=== PATIENT | female | born 1950 | race Caucasian/White ===

== ENCOUNTER 2025-06-23 08:26 | Outpatient (AMB) | payer MEDICARE, SELFPAY ==
--- NOTE | 2025-06-23 08:09 | A.OFFVIS_ITS ---
Intake Vital Signs 06/23/25 08:43 Height 5 ft 5.5 in Weight 135 lb 4 oz BMI 22.2 BP 120/62 Blood Pressure Location Lt brachial Position Sitting Respiration 16 Pulse 78 Pulse Source Pulse Oximeter Temp 97.7 F Temp Source Oral Pulse Oximetry (%) 96 Oxygen Delivery Method Room Air Intake Visit Reasons: medicare wellness visit Instructional Resource Teacher Required: No Accompanied by: Self / Same As Patient Allergies No Known Allergies Allergy (Verified 06/23/25 08:44) Medication List - Last Reconciled 06/23/25 by Tana East MD alendronate 70 mg PO QWEEK amlodipine 5 mg PO DAILY multivitamin with folic acid 400 mcg (Daily-Vcitor Manuel (with folic acid)) 1 tab PO DAILY neomycin-polymyxin B-dexameth 3.5 mg/g-10,000 unit/g-0.1 % 1 appl ophthalmic (eye) TID pravastatin 20 mg PO DAILY sulfasalazine PO HPI HPI Comments History of Present Illness Details The patient is a 75-year-old female presenting for a Medicare wellness visit Health Risk Assessment completed and reviewed. No cognitive deficits noted, no opioid use. Emotional distress: Emotional distress due to the recent deaths and family discord. Limited contact with grandchildren since 2015. Fracture of the right foot: Metatarsal fracture in February. Pain and instability. Using a brace. Completed two PT sessions. Pending orthopedic appt with [facility] Anxiety: Significant anxiety, insomnia from thoughts, weight loss, sporadic palpitations. Hypertension: On amlodipine for control; effective. Subclinical hypothyroidism- due for repeat labs MGUS-due for follow up with hematology at [facility] Hyperlipidemia- on statin. Osteoporosis: Uses alendronate. Rheumatoid Arthritis: Manages with sulfasalazine. Sees credit reference clerk Weight loss: 15-20 lb loss over one year; anxiety-ass ociated. Detachment from family: Limited interaction with family, particularly grandchildren. Care Team Dr. Rodriguez -rheumatology [facility]opedics [facility] Breast and Wellness Social History: - Limited family contact, especially wit h grandchildren since 2015 - Responsible for managing 's med ical care - Experienced financial strain due to me dical issues - Weight loss due to anxiety Review of Systems - Constitutional: Reports weight loss, d enies fever - Respiratory: Denies shortness of breat h - Cardiovascular: Reports palpitations l inked to anxiety - Gastrointestinal: Denies nausea or abd ominal pain - Musculoskeletal: Reports foot pain - Psychological: Reports anxiety, insomn ia Physical Exam General: NAD Chest: CTABL. Card: normal s1, s2, soft murmur across precordium Abd: SNTND, +BS Extremities: trace edema bilaterally Neuro: AOX3 Assessment and Plan 1. Emotional distress - Encourage support services; consider c ounseling. 2. Fracture of the foot - Continue PT; assess brace needs. 3. Anxiety - Explore therapeutic options; consider counseling referral. 4 Hypertension - Maintain amlodipine. 5. Osteoporosis - Continue alendronate. 6. Arthritis - Sustain sulfasalazine regimen. Discussion Notes During the visit, I discussed the comprehensive management of the patient's medical conditions, including maintaining antihypertensive therapy. The patient's emotional turmoil following family deaths and familial estrangement was acknowledged, and I recommended exploring support services and counseling to aid coping mechanisms. Her anxiety, leading to physical symptoms like weight loss and palpitations, was addressed, and counseling referrals were considered for psychological support. Anticipatory guidance addressed social support resource engagement [facility] Medical History (Updated 06/23/25 @ 15:42 by Tana East MD) Corneal ulcer Hyperlipidemia Osteoporosis Rheumatoid arthritis MGUS (monoclonal gammopathy of unknown significance) Anxiety Hypertension Subclinical hypothyroidism Questionnaire Medicare Wellness Checkup What [age] What gender do you identify with?: female During the past 4 weeks, how much have you been bothered by emotional problems such as feeling anxious, depressed, irritable, sad or downhearted, and blue?: quite a bit During the past 4 weeks, has your physical & emotional health limited your social activities with family, friends, neighbors, or groups?: slightly During the past 4 weeks, how much bodily pain have you generally had?: mild pain During the past 4 weeks, was someone available to help you if you needed & wanted help?: yes, quite a bit During the past 4 weeks, what was the hardest physical activity you could do for at least 2 minutes?: moderate Can you get to places out of walking distance without help? (For eg., can you travel alone on buses, taxis or drive your car?): Yes (right now, has broken foot) Can you go shopping for groceries or clothes without someone's help?: Yes Can you prepare your own meals?: Yes Can you do your housework without help?: Yes (usually; needs help now due to foot) Because of any health problems, do you need the help of another person with your personal care needs such as eating, bathing, dressing or getting around the house?: No Can you handle your own money without help?: Yes During the past 4 weeks, how would you rate your health in general?: good During the past 4 weeks how have things been going for you?: good & bad parts about equal Are you having difficulties driving your car?: not applicable, I don't use a car (broken foot) Do you always fasten your seat belt when you are in a car?: yes, usually During past 4 weeks, have you been bothered by the following: never: Falling or dizzy when standing up, Sexual problems?, Trouble eating well?, Teeth or denture problems? and Problems using the telephone? and sometimes: Tiredness or fatigue? Have you fallen 2 or more times in the past year?: No Are you afraid of falling?: Yes Are you a smoker?: no During the past 4 weeks, how many drinks of wine, beer, or other alcoholic beverages did you have?: no alcohol at all Do you exercise for about 20 minutes 3 or more times a week?: yes, most of the time Have you been given information to help with the following?: no: Hazards in your house that might hurt you? and no: Keeping track of your medications? How often do you have trouble taking medicines the way you have been told to take them?: I always take medicine as prescribed How confident are you that you can control & manage most of your health problems?: very confident What is your race?: White PHQ-9 Over the last 2 weeks, how often have you been bothered by any of the following problems? 1. Little interest or pleasure in doing things: not at all 2. Feeling down, depressed, or hopeless: several days 3. Trouble falling or staying asleep, or sleeping too much: several days 4. Feeling tired or having little energy: several days 5. Poor appetite or overeating: not at all 6. Feeling bad about yourself - or that you are a failure or have let yourself or your family down: not at all 7. Trouble concentrating on things, such as reading the newspaper or watching television: not at all 8. Moving or speaking so slowly that other people could have noticed. Or the opposite - being so fidgety or restless that you have been moving around a lot more than usual: not at all 9. Thoughts that you would be better off or of hurting yourself in some way: not at all Total score: 3 Source: Developed by Drs. Connor Chua, Flavia Colon, Robert Pastor and colleagues, with an educational lonny from [employer]. Physical Exam Vital Signs: Last Vital Signs Temp 97.7 F 06/23/25 08:43 Pulse 78 06/23/25 08:43 Resp 16 06/23/25 08:43 BP 120/62 06/23/25 08:43 Pulse Ox 96 06/23/25 08:43 Oxygen Delivery Method Room Air 06/23/25 08:43 BMI result Body Mass Index 22.2 Assessment & Plan Assessment & Plan (1) Hypertension: Code(s): I10 - Essential (primary) hypertension Qualifiers: Hypertension type: primary hypertension Qualified Code(s): I10 - Essential (primary) hypertension (2) Hyperlipidemia: Code(s): E78.5 - Hyperlipidemia, unspecified Qualifiers: Hyperlipidemia type: unspecified Qualified Code(s): E78.5 - Hyperlipidemia, unspecified (3) Rheumatoid arthritis: Code(s): M06.9 - Rheumatoid arthritis, unspecified Qualifiers: Rheumatoid arthritis location: unspecified site Rheumatoid factor presence: unspecified presence Qualified Code(s): M06.9 - Rheumatoid arthritis, unspecified (4) Anxiety: Code(s): F41.9 - Anxiety disorder, unspecified (5) Subclinical hypothyroidism: Code(s): E03.8 - Other specified hypothyroidism (6) Osteoporosis: Code(s): M81.0 - Age-related osteoporosis without current pathological fracture (7) MGUS (monoclonal gammopathy of unknown significance): Code(s): D47.2 - Monoclonal gammopathy Plan - Follow up with orthopedics - Advocate support for emotional distress and familial connections. - Counseling referral for anxiety and weight concerns. - Continue managing hypertension with amlodipine. - Maintain osteoporosis treatment. - Persist with current arthritis medication. Orders: Orders Microalbumin, Random (w Creat) Today I10 - Essential (primary) hypertension Comprehensive Met. Panel Today I10 - Essential (primary) hypertension Complete Blood Count Auto Diff Today D47.2 - Monoclonal gammopathy Vitamin B12 Today D47.2 - Monoclonal gammopathy, M06.9 - Rheumatoid arthritis, unspecified TSH reflex Free T4 Today E03.8 - Other specified hypothyroidism Lipid Panel Today E78.5 - Hyperlipidemia, unspecified Patient Instructions: Discussed preventive screening guidelines based on her age. Had mammogram done. Bone density done with credit reference clerk Quality Reporting (2019) Depression/Bipolar (159/160/161/177) PHQ-9: Total score: 3 Coding Level of Care Code Medicare Subsequent (G0439) Diagnoses Primary hypertension I10 Hypertension type: primary hypertension Hyperlipidemia, unspecified hyperlipidemia type E78.5 Hyperlipidemia type: unspecified Rheumatoid arthritis, involving unspecified site, unspecified whether rheumatoid factor present M06.9 Rheumatoid arthritis location: unspecified site Rheumatoid factor presence: unspecified presence Anxiety F41.9 Subclinical hypothyroidism E03.8 Osteoporosis M81.0 MGUS (monoclonal gammopathy of unknown significance) D47.2
--- OUTSIDE RECORDS SUMMARY | 2025-06-23 08:42 | XMS_ITS | Encounter Summary ---
Author Organization [facility] Address Formerly [facility] [employer] [address] [address] Phone Care Team Providers Care Manager Interface Name Role Phone Tana East MD Primary Care Provider + Adrian Waterman MD Primary Care Provider + Eveline Hilario OD Unavailable [phone] Reason for Referral * Physical Therapy (Routine) - Closed Specialty Diagnoses / Procedures Referred By Thalia guillaume Referred To Contact Physical Therapy Diagnoses Encounter for rehabilitation System, Provider Not In, PhD [address] [address] Phone: tel: Referral ID Status Reason Start Date Expiration Date Visits Re quested Visits Authorized [id number] Closed 12/19/2018 08/27/2019 99 99 Encounter Details Date Type Department Care Team (Latest Contact Info) Description 12/18/2018 Transcribe Orders [facility] Rehabilitation Services [address] [place] [phone] Tana East MD [facility] [place] [address] Encounter for rehabilitation (Primary Dx) Social History Tobacco Use Types Packs/Day Years Used Date Smoking Tobacco: Never Assessed Comments Unknown Sex and Gender Information Value Date Recorded Sex Assigned at Female 01/30/2023 11:08 AM EDT Legal Sex Female 10:52 AM EDT Gender Identity Female 01/30/2023 11:08 AM EDT Sexual Orientation Straight 01/30/2023 11 :08 AM EDT documented as of this encounter Plan of Treatment Not on file documented as of this encounter Procedures Procedure Name Priority Date/Time Associated Diagnosis Comments AMB REFERRAL TO [facility] PHYSICAL THERAPY Routine 12/20/2018 8:47 AM EDT Encounter for rehabilitation documented in this encounter Results * Ambulatory referral to [facility] Physical Therapy (12/20/2018 8:47 AM EDT) us Provider Not In System PhD AMB [facility] REFERRALS Fin al Result documented in this encounter Visit Diagnoses Diagnosis Encounter for rehabilitation- Primary documented in this encounter Care Teams Manager Interface Relationship Specialty Start Date End Date Tana East MD [address] [place] [address] PCP - General Internal Medicine 12/14/18 12/04/22 Adrian Waterman MD [facility] [address] [address] PCP - General Ophthalmology 12/05/22 [facility] OD [facility] [address] [address] Optometry 12/05/22 12/05/22 documented as of this encounter Additional Source Comments The information contained in this document represents components of the legal health record. It is not the complete legal health record.[facility]
[2025-06-23 08:43] VITALS: BP 120/62; PULSE 78; RESP 16; TEMP 36.5; O2SAT 96; BMI 22.2
--- OUTSIDE RECORDS SUMMARY | 2025-06-23 08:43 | XMS_ITS | Clinical Summary ---
Author Organization [facility] Address [address] [facility] [address] [place] [address] Phone Care Team Providers Care Ribbon Inker Name Role Phone Adrian Waterman MD Primary Care Provider + Allergies Active Allergy Reactions Criticality Noted Date Comments Latex, Natural Rubber 06/03/2019 Medications pravastatin (PRAVACHOL) 20 MG tablet Take 20 mg by mouth daily. 1 04/02/2019 Active alendronate (FOSAMAX) 70 MG tablet TAKE ONE TABLET BY MOUTH ONCE A WEEK. TAKE ON AN EMPTY STOMACH, SIT UPRIGHT FOR 30 MINUTES AFTER 04/24/2021 Active sulfaSALAzine (AZULFIDINE) 500 mg tablet Take 1,000 mg by mouth 2 (two) times a day. 04/21/2021 Active Ca cit-D3-mag#11-z ynl-lnhp-qca-lonny r (CALTRATE 600+D) 600 mg calcium- 800 unit-50 mg Tab Take 1 tablet by mouth daily. Active Active Problems No known active problems Immunizations Immunization Administration Dates Next Due Influenza High-Dose Trivalent Preservative Free IM 06/19/2019,07/07/2017 Pneumococcal polysaccharide PPSV23 07/07/2017 Tdap 01/06/2021 Social History Tobacco Use Types Packs/Day Years Used Date Smoking Tobacco: Never Smokeless Tobacco: Never Education Answer Date Recorded Are you interested in more education? Not on kenroy e 12/23/2022 Are you concerned about learning? Not on file 12/23/2022 No 12/23/2022 No 12/23/2022 Digital Access Answer Date Recorded No 01/24/2023 No 01/24/2023 No 01/24/2023 Reliable internet access at home? Not on file 01/24/2023 Device with a working camera? Not on file Comments Unknown Sex and Gender Information Value Date Recorded Sex Assigned at Female 01/30/2023 11:08 AM EDT Legal Sex Female 10:52 AM EDT Gender Identity Female 01/30/2023 11:08 AM EDT Sexual Orientation Straight 01/30/2023 11 :08 AM EDT Last Filed Vital Signs Vital Sign Reading Time Taken Comments Blood Pressure 149/76 05/21/2021 12:42 PM EDT Pulse 78 05/21/2021 12:42 PM EDT Temperature 36.6 C (97.9 F) 05/21/2021 12:42 PM EDT Respiratory Rate 18 05/21/2021 12:42 PM EDT Oxygen Saturation 98% 05/21/2021 12:42 PM EDT Inhaled Oxygen Concentration - - Weight 73.9 kg (163 lb) 01/31/2020 8:27 AM EDT Height 165.1 cm (5' 5 ) 01/31/2020 8:27 AM EDT Body Mass Index 27.12 01/31/2020 8:27 AM EDT Plan of Treatment Health Maintenance Due Date Last Done Comments LIPID PANEL 1950 DEPRESSION SCREENING 1962 HEPATITIS C SCREENING 01/13/1968 COLOGUARD 1995 COLONOSCOPY 1995 COLORECTAL CANCER SCREENING 1995 FIT TEST 1995 FOBT 1995 SIGMOIDOSCOPY 1995 VIRTUAL COLONOSCOPY 1995 ZOSTER VACCINES (1 of 2) 01/13/2000 OSTEOPOROSIS SCREENING INITIAL (ONE-TIME) 2015 RSV VACCINE (1 - 1-dose 75+ series) 2025 INFLUENZA VACCINE (#1) 2025 , 05/24/2021, 05/25/2020, Additional history exists COVID-19 VACCINE ( season) 2025 12/15/2021, 06/06/2021, 11/03/2020, Additional history exists Adult Td,Tdap Booster 01/06/2031 01/06/2021, 018 SMOKING STATUS SCREENING (Once After 26 Yrs) Completed 05/21/2021 PNEUMOCOCCAL VACCINES (50+ years) Completed 03/14/2022, 07/07/2017, 10/05/2015 HEPATITIS A VACCINES Aged Out No long er eligible based on patient's age to complete this topic HIB VACCINES Aged Out No longer eligi ble based on patient's age to complete this topic MENINGOCOCCAL VACCINES (ACWY) Aged Out No longer eligible based on patient's age to complete this topic MENINGOCOCCAL VACCINES (B) Aged Out N o longer eligible based on patient's age to complete this topic Medical Devices Not on file Insurance MEDICARE PART A & B MEDICARE PART A & B MEDICARE PART A & B MEDICARE PART A & B MEDICARE PART A & B MEDICARE PART A & B MEDICARE PART A & B MEDICARE PART A & B MEDICARE PART A & B MEDICARE PART A & B MEDICARE SUPPLEMENT Care Teams Ribbon Inker Relationship Specialty Start Date End Date Adrian Waterman MD [address] [place] [phone] PCP - General Ophthalmology 12/05/22 Additional Source Comments The information contained in this document represents components of the legal health record. It is not the complete legal health record.[facility]
--- OUTSIDE RECORDS SUMMARY | 2025-06-23 08:43 | XMS_ITS | Clinical Summary ---
Author Organization [facility] Address [address] [place] [address] Phone Care Team Providers Care Electronic Prepress System Operator Name Role Phone Tana East MD Primary Care Provider [phone] Allergies Active Allergy Reactions Criticality Noted Date Comments Adhesive Tape-Silicones Rash Low 11/22/2023 Latex Rash Low 07/26/2023 Latex, Natural Rubber Rash Low 06/03/2019 Simvastatin Other (See Comments) Medium 11/22/2023 Medications sulfaSALAzine (AZULFIDINE) 500 mg/5 ml suspension Active multivitamin with minerals Cap Take 1 tablet by mouth daily. 3 Active alendronate (FOSAMAX) 70 mg tablet Take 1 tablet (70 mg total) by mouth once a week. 3 Active calcium carb/vit D3/minerals (CALTRATE 600+D PLUS MINERALS ORAL) Take 1 capsule by mouth daily. Active pravastatin (PRAVACHOL) 20 mg tablet Take 1 tablet (20 mg total) by mouth. 3 Active SODIUM BORATE, BULK, MISC Take 1 tablet by mouth daily. Active triamcinolone (KENALOG) 0.1 % cream Apply topically 2 (two) times daily. Active sulfaSALAzine (AZULFIDINE) 500 mg tablet Take 3 tablets (1,500 mg total) by mouth 2 (two) times daily. Active Active Problems No known active problems Family History Medical History Relation Name Comments Diabetes Brother Diabetes Father Relation Name Status Comments Brother Father Social History Tobacco Use Types Packs/Day Years Used Date Smoking Tobacco: Never Tobacco Cessation:Counseling Given: Not Answered Alcohol Use Standard Drinks/Week Comments Never 0 (1 standard drink = 0.6 oz pur e alcohol) Interpersonal Safety Answer Date Record ed Is there anyone in your life that is hurting or threatening you in anyway? no 12/12/2023 Physical Indicators of Abuse No evidence of phys ical abuse 12/12/2023 Comments Unknown Sex and Gender Information Value Date Recorded Sex Assigned at Female 04/14/2023 9:13 PM EDT Legal Sex Female 3:43 PM EDT Gender Identity Female 04/14/2023 9:13 PM EDT Sexual Orientation Straight 04/14/2023 9: 13 PM EDT Last Filed Vital Signs Vital Sign Reading Time Taken Comments Blood Pressure 133/58 12/12/2023 12:15 PM EDT Pulse 72 12/12/2023 12:00 PM EDT Temperature 36.4 C (97.6 F) 12/12/2023 12:15 PM EDT Respiratory Rate 16 12/12/2023 12:15 PM EDT Oxygen Saturation 97% 12/12/2023 12:15 PM EDT Inhaled Oxygen Concentration - - Weight 66.2 kg (146 lb) 12/12/2023 9:50 AM EDT Height 165.1 cm (5' 5 ) 12/12/2023 9:50 AM EDT Body Mass Index 24.3 12/12/2023 9:50 AM EDT Plan of Treatment Health Maintenance Due Date Last Done Comments HIV screening 1963 Hepatitis C screening 01/13/1968 Lipid disorder screening 1990 Colon cancer screening, Colonoscopy 1995 Diabetes screening 1995 Shingles vaccine (Shingrix) (1 of 2 - Shingrix (RZV) 2 Dose Standard Series) 01/13/2000 Osteoporosis screening (bone density) 2015 RSV Immunization (1 - 1-dose 75+ series) 2025 Influenza vaccine 03/28/2025 05/15/2023, , 05/24/2021, Additional history exists Covid-19 vaccine series (2024- season) 2025 05/29/2023, 12/15/2021, 06/06/2021, Additional history exists Tetanus adult (Td q 10,TDAP once) 01/06/2031 01/06/2021, 10/23/2017 Pneumococcal Vaccine (50+ years) Completed 03/14/2022, 07/07/2017, 10/05/2015 Breast cancer screening Discontinued Cervical cancer screening Discontinued Meningococcal B Vaccine Aged Out No l onger eligible based on patient's age to complete this topic Meningococcal Vaccine Aged Out No andree marcia eligible based on patient's age to complete this topic Medical Devices Implanted Type Area Loft Worker Pile Driving Device Identifier Shelf Expiration Date Model / Serial / Lot Lens Acrysof Sp Foldable 13.0 Optic 6.0 Sa60at.360 36.0d - [id number] Implanted:Qty: 1 on 11/28/2023 by Chandan Mishra MD at [facility] [address] Implant Left: Eye [employer] [id number] 06/16/2028 SA60AT.360 / [id number] / [id number] Lens Acrysof Sp Foldable 13.0 Optic 6.0 Sa60at.400 40.0d - [id number] Implanted:Qty: 1 on 12/12/2023 by Chandan Mishra MD at [facility] [address] Implant Right: Eye [employer] [id number] 12/31/2024 SA60AT.400 / [id number] / [id number] Insurance MEDICARE GIL[place]ERT KENDRICK [id number] AARP MEDICARE AARP Member Subscriber Plan / Payer ( fective 2022-) Name:Eliz Cobb Relation to Subscriber:Self Name:Eliz Cobb Payer ID:[id number] Group ID:[id number] Type:Not on file Address: [address] MEDICARE AARP Care Teams Electronic Prepress System Operator Relationship Specialty Start Date End Date Tana East MD [facility] [address] [address] PCP - General Internal Medicine 07/26/23
--- OUTSIDE RECORDS SUMMARY | 2025-06-23 08:43 | XMS_ITS | Encounter Summary ---
Author Organization [facility] Address [facility] [employer] [address] [address] Phone Care Team Providers Care Flight Control Manager Name Role Phone Tana East MD Primary Care Provider + Adrian Waterman MD Primary Care Provider + Eveline Hilario OD Unavailable [phone] Encounter Details Date Type Department Care Team (Late st Contact Info) Description 02/04/2019 Documentation [facility] Rehabilitation Services [address] [place] [id number] Elizabeth Lujan PT [email or web address] Social History Tobacco Use Types Packs/Day Years [...] on file documented as of this encounter Visit Diagnoses Not on filedocumented in this encounter Care Teams Flight Control Manager Relationship Specialty Start Date End Date Tana East MD [address] [place] [address] PCP - General Internal Medicine 12/14/18 12/04/22 Adrian Waterman MD [address] [facility] [address] [place] [address] PCP - General Ophthalmology 12/05/22 Eveline Hilario OD [facility] [address] [place] [address] Optometry 12/05/22 12/05/22 documented as of this encounter Additional Source Comments The information contained in this document represents components of the legal health record. It is not the complete legal health record.[facility]
== END 2025-06-23 09:43 | disposition home or self-care (01) ==
LOC: HO.HMCHD 08:26
PROVIDERS: Visit Provider Internal Medicine
DX: I10 Essential (primary) hypertension (principal); E78.5 Hyperlipidemia, unspecified; M06.9 Rheumatoid arthritis, unspecified; F41.9 Anxiety disorder, unspecified; E03.8 Other specified hypothyroidism; M81.0 Age-related osteoporosis without current pathological fracture; D47.2 Monoclonal gammopathy

== ENCOUNTER 2025-06-23 09:45 | Outpatient (REF) | payer MEDICARE, SELFPAY ==
[2025-06-23 13:25] LABS: MANUAL DIFF FLAG NO
[2025-06-23 13:34] LABS: Hematocrit 39.0 % (37.0-47.0); Hemoglobin 12.2 g/dl (12.0-16.0); Imm Gran Abs Auto 0.06 X10*3/uL (0.00-0.03); Imm Gran Pct Auto 1.0 % (0.0-0.4); Lymphocytes Absolute Auto 1.5 X10*3/uL (1.2-4.9); Mean Corpuscular HGB Conc 31.3 g/dl (31.0-35.0); Mean Corpuscular Hemoglobin 31.9 pg (27.0-33.0); Mean Corpuscular Volume 101.8 fL (80.0-98.0); NRBC Abs Auto 0.000 X10*3/uL (0.0-0.012); NRBC Pct Auto 0.0 /100WBC (0.0-0.2); Platelet Count 335 X10*3/uL (160-400); Red Blood Count 3.83 X10*6/uL (4.20-5.50); White Blood Count 5.9 X10*3/uL (4.8-10.8)
[2025-06-23 13:38] LABS: Alanine Aminotransferase 27 U/L (0-31); Albumin Level 4.7 g/dL (3.5-5.0); Alkaline Phosphatase 51 U/L (39-117); Anion Gap 12 (12-20); Aspartate Amino Transferase 35 U/L (5-31); Blood Urea Nitrogen 17 mg/dL (9-16); Calcium 9.3 mg/dL (8.4-10.2); Carbon Dioxide 28 mmol/L (22-29); Chloride 105 mmol/L (96-108); Cholesterol 209 mg/dL (<200); Estimated Glomerular Filt Rate > 60; HDL Cholesterol 75 mg/dL (>40); Potassium 3.8 mmol/L (3.3-5.1); Sodium 141 mmol/L (135-145); Total Protein 8.1 g/dL (6.5-8.0); Triglycerides 40 mg/dL (<150)
[2025-06-23 13:51] LABS: Microalbum/Creatinine Ratio Ur 7.6 ug/mg cr (<30)
[2025-06-23 13:54] LABS: Vitamin B12 805 pg/mL (200-900)
[2025-06-23 14:29] LABS: Free T4 (Free Thyroxine) 1.04 ng/dL (0.71-1.85)
== END 2025-06-23 09:46 | disposition home or self-care (01) ==
LOC: HO.10HDL 09:45
PROVIDERS: Visit Provider Internal Medicine
DX: I10 Essential (primary) hypertension (principal); E03.8 Other specified hypothyroidism; D47.2 Monoclonal gammopathy; M06.9 Rheumatoid arthritis, unspecified; E78.5 Hyperlipidemia, unspecified
CPT/HCPCS: 36415; 80053; 80061; 82043; 82570; 82607; 84439; 84443; 85025

== ENCOUNTER 2025-07-30 10:23 | Outpatient (AMB) | payer MEDICARE, SELFPAY ==
--- OUTSIDE RECORDS SUMMARY | 2025-07-27 12:10 | XMS_ITS | Encounter Summary ---
Author Organization [facility] Address [address] [facility] [address] [place] [phone] Phone Care Team Providers Care Timber Cutter Name Role Phone Tana East MD Primary Care Provider + Reason for Visit * Reason Comments Fall Encounter Details Date Type Department Care Team (Late st Contact Info) Description 07/27/2025 12:10 PM EST Office Visit [facility] at [address] [phone] Dora Lozada, TECHNICAL ARCHITECT [address] [place] [address] [email or web address] Rib pain (Primary Dx); Right foot pain Social History Tobacco Use Types Packs/Day Years Used Date Smoking Tobacco: Never Smokeless Tobacco: Never Education Answer Date Recorded Are you interested in more education? Not on kenroy e 12/23/2022 Are you concerned about learning? Not on file 12/23/2022 No 12/23/2022 No 12/23/2022 Digital Access Answer Date Recorded No 01/24/2023 No 01/24/2023 Reliable internet access at home? Not on file 01/24/2023 Device with a working camera? Not on file Intimate Partner Violence Answer Date R ecorded Are you denied basic needs s uch as food, clothing, or medical care? No 07/27/2025 In the past 12 months have y ou been in a relationship with a person who hurts, threatens, or tries to control you? No 07/27/2025 Are you denied basic needs s uch as food, clothing, or medical care? No 07/27/2025 In the past 12 months have y ou been in a relationship with a person who hurts, threatens, or tries to control you? No 07/27/2025 Comments Unknown Sex and Gender Information Value Date Recorded Sex Assigned at Female 01/30/2023 11:08 AM EDT Legal Sex Female 10:52 AM EDT Gender Identity Female 01/30/2023 11:08 AM EDT Sexual Orientation Straight 01/30/2023 11 :08 AM EDT documented as of this encounter Last Filed Vital Signs Vital Sign Reading Time Taken Comments Blood Pressure 146/65 07/27/2025 12:36 PM EST Pulse 73 07/27/2025 12:36 PM EST Temperature 37.1 C (98.7 F) 07/27/2025 12:36 PM EST Respiratory Rate 22 07/27/2025 12:36 PM EST Oxygen Saturation 100% 07/27/2025 12:36 PM EST Inhaled Oxygen Concentration - - Weight - - Height - - Body Mass Index - - documented in this encounter Functional Status * Calculated C-SSRS Risk Score (Lifetime/Recent) Answer Date of Assessment Author No Risk Indicated 07/27/2025 2:01 PM EST Yudy Cristina RN * [place] Suicide Severity Rating Scale (Screener/Recent Self-Report) Question Answer Date of Assessment Author 1. Wish to be (Past 1 Month) No 025 2:01 PM Yudy Singh RN 2. Non-Specific Active Suici patsy Thoughts (Past 1 Month) No 07/27/2025 2:01 PM EST Bereket Hartley RN 6. Suicidal Behavior (Lifetime) No 2:01 PM Yudy Singh RN documented as of this encounter Progress Notes * Dora Lozada, JON - 07/27/2025 12:10 PM EST I obtained verbal consent from the patient or their proxy to record this visit for purposes of producing a draft of the encounter documentation. History of Present Illness The patient is a 75-year-old female with a history of metatarsal fracture who presents with rib pain after a fall in the shower. Rib Pain - She lost her balance while drying herself and struck her rib cage. - This caused excruciating pain and difficulty breathing. - Pain is localized to the rib cage and extends under her breast to RUQ. Foot Pain - She reports severe pain from the metatarsal bone to her pinky toe. - She suspects reinjury of the foot. - History of foot fracture in 02/2025, initially treated with a boot, now in a brace. ROS: Per HPI Vitals: 07/27/25 1236 BP: (!) 146/65 Pulse: 73 Resp: 22 Temp: 37.1 ??C (98.7 ??F) SpO2: 100% Physical Exam General Appearance: General: Pt not in acute distress. Appearance: Normal appearance. Well-developed. Not ill-appearing. Vital signs: Within normal limits HEENT: Head: Normocephalic and atraumatic. Right Ear: External ear normal. Left Ear: External ear normal. Nose: Nose normal. Respiratory: Lungs clear to auscultation. Back, Musculoskeletal: Severe lateral right rib tenderness, no crepitus or bony deformity Abd: RUQ pain and bruising Skin: Warm and dry, no rash Neurological: General: No focal deficit present. Mental Status: Alert and oriented to person, place, and time. Psychiatric: Mood normal. Behavior normal. Thought content normal. Judgment normal. Assessment & Plan 1. Rib injury - X-ray of ribs negative for fracture - Significant bruising 2. Foot injury - X-ray c/w a healing fracture, no new fractures or displacement noted - Continue wearing brace 3. RUQ pain - Severity of pain concerning for underlying liver injury -Cannot fully assess in UC -Recommend ED evaluation, pt agreeable -Expect sent documented in this encounter Plan of Treatment Not on file documented as of this encounter Procedures Procedure Name Priority Date/Time Associated Diagnosis Comments XR RIBS 3 OR MORE VIEWS WITH PA CHEST (RIGHT) Urgent/patient waiting 07/27/2025 12:59 PM EST Rib pain XR FOOT 3 OR MORE VIEWS (RIGHT) Urgent/patient waiting 07/27/2025 12:58 PM EST Right foot pain documented in this encounter Results * XR RIBS 3 OR MORE VIEWS WITH PA CHEST (RIGHT) (07/27/2025 12:59 PM EST) Anatomical Region Laterality Modality Chest Computed Radiogr aphy 07/27/2025 1:43 PM EST Impressions 07/27/2025 1:45 PM EST No acute displaced right rib fracture. No focal consolidation, pleural effusion, pulmonary edema or pneumothorax. Normal cardiomediastinal silhouette. Atherosclerotic calcification of the aorta. Mild multilevel degenerative changes of the thoracic spine. Narrative 07/27/2025 1:45 PM EST XR RIBS 3 OR MORE VIEWS WITH PA CHEST (RIGHT) Referring clinician's provided indication for this examination in [facility]: Pain; Trauma; S/P Fall; hx recent fracture COMPARISON: None. Procedure Note Yves Hercules MD - 07/27/2025 XR RIBS 3 OR MORE VIEWS WITH PA CHEST (RIGHT) Referring clinician's provided indication for this examination in [facility]:Pain; Trauma; S/P Fall; hx recent fracture COMPARISON: None. IMPRESSION: No acute displaced right rib fracture. No focal consolidation, pleural effusion, pulmonary edema or pneumothorax.Normal cardiomediastinal silhouette. Atherosclerotic calcification of theaorta. Mild multilevel degenerative changes of the thoracic spine. Dora Lozada TECHNICAL ARCHITECT IMG XR CHEST Final R esult * XR FOOT 3 OR MORE VIEWS (RIGHT) (07/27/2025 12:58 PM EST) Anatomical Region Laterality Modality Foot Right Computed Radiogr aphy 07/27/2025 1:37 PM EST Impressions 07/27/2025 1:42 PM EST Osseous demineralization. Linear lucency through the base of the 5th metatarsal, which may represent a nondisplaced fracture or vascular channel. Correlation with area of tenderness is recommended. No dislocation. Mild degenerative changes of the 1st metatarsophalangeal joint. Mild flattening of the 2nd metatarsal head, which is likely chronic. Small dorsal and plantar calcaneal enthesophytes. Narrative 07/27/2025 1:42 PM EST XR FOOT 3 OR MORE VIEWS (RIGHT) Referring clinician's provided indication for this examination in [facility]: Pain; Trauma; hx recent fracture COMPARISON: None. Procedure Note Yves Hercules MD - 07/27/2025 XR FOOT 3 OR MORE VIEWS (RIGHT) Referring clinician's provided indication for this examination in [facility]:Pain; Trauma; hx recent fracture COMPARISON: None. IMPRESSION: Osseous demineralization. Linear lucency through the base of the 5thmetatarsal, which may represent a nondisplaced fracture or vascularchannel. Correlation with area of tenderness is recommended. Nodislocation. Mild degenerative changes of the 1st metatarsophalangealjoint. Mild flattening of the 2nd metatarsal head, which is likelychronic. Small dorsal and plantar calcaneal enthesophytes. Dora Lozada [facility] IMG XR LOWER EXTREMITY Final Result documented in this encounter Visit Diagnoses Diagnosis Rib pain- Primary Unspecified chest pain Right foot pain Pain in soft tissues of limb documented in this encounter Care Teams Timber Cutter Relationship Specialty Start Date End Date Tana East MD [address] [place] [phone] PCP - General Internal Medicine 07/27/25 documented as of this encounter Additional Source Comments The information contained in this document represents components of the legal health record. It is not the complete legal health record.[facility]
--- OUTSIDE RECORDS SUMMARY | 2025-07-27 12:46 | XMS_ITS | Encounter Summary ---
Author Organization [facility] Address [address] [place] [phone] Phone Care Team Providers Care Table Lever Operator Name Role Phone Tana East MD Primary Care Provider + Encounter Details Date Type Department Care Team (Late st Contact Info) Description 07/27/2025 12:46 PM EST Hospital Encounter [facility] [address] [place] [phone] Dora Lozada, FLUORESCENT LAMP REPLACER [address] [place] [address] [email or web address] Arrived Social History Tobacco Use Types Packs/Day Years [...] AM EDT documented as of this encounter Functional Status * Calculated C-SSRS Risk Score (Lifetime/Recent) Answer Date of Assessment Author No Risk Indicated 07/27/2025 2:01 PM Yudy Angel RN * [place] Suicide Severity Rating Scale (Screener/Recent Self-Report) Question Answer Date of Assessment Author 1. Wish to be (Past 1 Month) No 025 2:01 PM Yudy Singh RN 2. Non-Specific Active Suici patsy Thoughts (Past 1 Month) No 07/27/2025 2:01 PM Bereket Singh RN 6. Suicidal Behavior (Lifetime) No 2:01 PM Yudy Singh RN documented as of this encounter Plan of Treatment Not on file documented as of this encounter Procedures Procedure Name Priority Date/Time Associated Diagnosis Comments XR RIBS 3 OR MORE VIEWS WITH PA CHEST (RIGHT) Urgent/patient waiting 07/27/2025 12:59 PM EST Rib pain documented in this encounter Results * [...] clinician's provided indication for this examination in [facility]: Pain; Trauma; S/P Fall; hx recent fracture COMPARISON: None. Procedure Note Yves Hercules MD - 07/27/2025 XR RIBS 3 OR MORE VIEWS WITH PA CHEST (RIGHT) Referring clinician's provided indication for this examination in [facility]:Pain; Trauma; S/P Fall; hx recent fracture COMPARISON: None. IMPRESSION: No acute displaced right rib fracture. No focal consolidation, pleural effusion, pulmonary edema or pneumothorax.Normal cardiomediastinal silhouette. Atherosclerotic calcification of theaorta. Mild multilevel degenerative changes of the thoracic spine. us Dora Lozada FLUORESCENT LAMP REPLACER IMG XR CHEST Final R esult documented in this encounter Visit Diagnoses Not on filedocumented in this encounter Care Teams Table Lever Operator Relationship Specialty Start Date End Date Tana East MD [address] [place] [phone] PCP - General Internal Medicine 07/27/25 documented as of this encounter Additional Source Comments The information contained in this document represents components of the legal health record. It is not the complete legal health record.[facility]
--- OUTSIDE RECORDS SUMMARY | 2025-07-27 12:46 | XMS_ITS | Encounter Summary ---
Author Organization [facility] Address [address] [place] [phone] Phone Care Team Providers Care Seed Technician Name Role Phone Tana East MD Primary Care Provider + Encounter Details Date Type Department Care Team (Late st Contact Info) Description 07/27/2025 12:46 PM EST Hospital Encounter [facility] [address] [place] [phone] Dora Lozada, PROGRAMMING DIRECTOR [address] [place] [address] [email or web address] Arrived Social History Tobacco Use Types Packs/Day [...] 07/27/2025 2:01 PM Yudy Angel RN * [place] Suicide Severity Rating Scale (Screener/Recent Self-Report) Question [...] Name Priority Date/Time Associated Diagnosis Comments XR FOOT 3 OR MORE VIEWS (RIGHT) Urgent/patient waiting 07/27/2025 12:58 PM EST Right foot pain documented in this encounter Results * XR FOOT 3 OR MORE VIEWS [...] clinician's provided indication for this examination in [facility]: Pain; Trauma; hx recent fracture COMPARISON: None. Procedure Note Yves Hercules MD - 07/27/2025 XR FOOT 3 OR MORE VIEWS (RIGHT) Referring clinician's provided indication for this examination in Epic:Pain; Trauma; hx recent fracture COMPARISON: None. IMPRESSION: Osseous demineralization. Linear lucency through the base of the 5thmetatarsal, which may represent a nondisplaced fracture or vascularchannel. Correlation with area of tenderness is recommended. Nodislocation. Mild degenerative changes of the 1st metatarsophalangealjoint. Mild flattening of the 2nd metatarsal head, which is likelychronic. Small dorsal and plantar calcaneal enthesophytes. Dora Lozada PROGRAMMING DIRECTOR IMG XR LOWER EXTREMITY Final Result documented in this encounter Visit Diagnoses Not on filedocumented in this encounter Care Teams Seed Technician Relationship Specialty Start Date End Date Tana East MD [address] [place] [phone] PCP - General Internal Medicine 07/27/25 documented as of this encounter Additional Source Comments The information contained in this document represents components of the legal health record. It is not the complete legal health record.[facility]
--- OUTSIDE RECORDS SUMMARY | 2025-07-27 14:16 | XMS_ITS | Encounter Summary ---
Author Organization [facility] Address [address] [facility] [address] [place] [id number] Phone Care Team Providers Care Washroom Attendant Name Role Phone Tana East MD Primary Care Provider + Reason for Visit * Reason Comments Fall Encounter Details Date Type Department Care Team (Late st Contact Info) Description 07/27/2025 2:16 PM EST - 07/27/2025 10:36 PM EST Emergency [facility] [address] [place] [address] Shona Urbina MD [address] [place] [address] [email or web address] Discharge Disposition: Home or Self Care Social History Tobacco Use Types Packs/Day Years [...] Sign Reading Time Taken Comments Blood Pressure 124/65 07/27/2025 10:20 PM EST Pulse 84 07/27/2025 10:20 PM EST Temperature 36.2 C (97.2 F) 07/27/2025 10:20 PM EST Respiratory Rate 16 07/27/2025 10:20 PM EST Oxygen Saturation 99% 07/27/2025 10:20 PM EST Inhaled Oxygen Concentration - - Weight 73.9 kg (163 lb) 07/27/2025 2:00 PM EST Height 165.1 cm (5' 5 ) 07/27/2025 2:00 PM EST Body Mass Index 27.12 07/27/2025 2:00 PM EST documented in this encounter Functional Status * Calculated C-SSRS Risk Score (Lifetime/Recent) Answer Date of Assessment Author No Risk Indicated 07/27/2025 2:01 PM EST Yudy Cristina RN * [place] Suicide Severity Rating Scale (Screener/Recent Self-Report) Question Answer Date of Assessment Author 1. Wish to be (Past 1 Month) No 025 2:01 PM EST Yudy Hartley RN 2. Non-Specific Active Suici patsy Thoughts (Past 1 Month) No 07/27/2025 2:01 PM EST Bereket Hartley RN 6. Suicidal Behavior (Lifetime) No 2:01 PM EST Yudy Hartley, JULIAN documented as of this encounter Discharge Instructions * Discharge Instructions* Shona Urbina MD - 07/27/2025 9:36 PM EST You were seen in the emergency department for concerns of a fall. We conducted a CAT scan of your abdomen and pelvis which showed that you had 3 partially broken rib fractures on the right side without any evidence of fluid around your lungs or any issues with your lungs. It also showed a nondisplaced fracture with your inferior sacrum however you are able to walk around without any difficulty. We discussed at length about hospitalization however at this time you have preferred to continue medical management at home. Please be sure to conduct the incentive spirometry 10 times an hour and continue taking Tylenol (500mg) and Motrin (400mg) as well as baclofen (5mg) every 8 hours as needed for pain. We are also providing you with a short course of oxycodone to use whenever the pain is worse despite using the other 3 medications. Please also use lidocaine patches, changing them every 12 hours. It is important to continue to use the incentive spirometry 10 times an hour. If you experience anyfevers, chills, worsening cough, any worsening pain, it is important to return to the emergency department for further evaluation. Please otherwise continue to follow-up with your primary care provider. It was a pleasure treating you! documented in this encounter Medications at Time of Discharge alendronate (FOSAMAX) 70 MG tablet TAKE ONE TABLET BY MOUTH ONCE A WEEK. TAKE ON AN EMPTY STOMACH, SIT UPRIGHT FOR 30 MINUTES AFTER 04/24/2021 amLODIPine (NORVASC) 5 MG tablet Take 5 mg by mouth daily. Ca cit-D3-mag#[id number] yg-gjae-gyc-bor (CALTRATE 600+D) 600 mg calcium- 800 unit-50 mg Tab Take 1 tablet by mouth daily. pravastatin (PRAVACHOL) 20 MG tablet Take 20 mg by mouth nightly at bedtime. 1 04/02/2019 sulfaSALAzine (AZULFIDINE) 500 mg tablet Take 1,000 mg by mouth 2 (two) times a day. 04/21/2021 baclofen (LIORESAL) 5 mg tablet Take 1 tablet (5 mg total) by mouth 3 (three) times a day for 14 days. 42 tablet 07/27/2025 08/10/2025 lidocaine (LIDODERM) 5 % Place 1 patch onto the skin daily. Remove & Discard patch within 12 hours or as directed by 30 patch 07/27/2025 oxyCODONE 5 MG immediate release tablet Take 1 tablet (5 mg total) by mouth every 8 (eight) hours as needed for pain (specific location in comments). 9 tablet 07/27/2025 documented as of this encounter Consult Notes * Carlos Parry, DO - 07/27/2025 9:26 PM EST HOSPITALIST MEDICINE CONSULT NOTE Name:?Eliz Cobb MRN:?[id number] : 1950 PCP: ??Tana East MD Date : 07/27/2025 Time: 9:26 PM Hospital Day: Hospital Day: 1 Reason for Consultation: Rib fracture Requesting Physician: Shona Urbina MD History of Present Illness: HPI: Eliz Cobb is a 75 y.o. female whom we were asked to consult upon for potential admission for multiple closed rib fractures on the right. Patient is a good historian. Her and son are at bedside and provide information when necessary. Eliz has a history of metatarsal fracture in her foot and is in a walking boot since February. She wasin the shower tonight and attempted to put her foot on the edge of the shower basin but lost her balance causing her to fall onto her right side immediately causing pain. She initially went to urgent care who was concerned that perhaps she had sustained a liver injury and was directed to the emergency department. Here, she was confirmed to have closed rib fractures on the right side with a sacral fracture as well. RIG score elevated prompting request for admission. Upon evaluation of Eliz she was tearful in the bed. She is very anxious and afraid of staying in the hospital. Apparently, her has been admitted twice recently and she felt that his care wassubpar. She denies any fevers or chills. I asked her to cough and this was very weak. I demonstrated how touse incentive spirometer and then had her do this for me at bedside and she was able to get a volume of 800-1000 cc. Past History: Past Medical History: Diagnosis Date Arthritis Essential hypertension Hyperlipidemia Osteoporosis No past surgical history on file. Social History Socioeconomic History Marital status: /Civil Union Spouse name: Not on file Number of children: Not on file Years of education: Not on file Highest education level: Not on file Occupational History Not on file Tobacco Use Smoking status: Never Smokeless tobacco: Never Substance and Sexual Activity Alcohol use: Not on file Drug use: Not on file Sexual activity: Not on file Other Topics Concern Not on file Social History Narrative Not on file Social History Substance and Sexual Activity Alcohol Use None Social History Tobacco Use Smoking Status Never Smokeless Tobacco Never Social History Substance and Sexual Activity Drug Use Not on file Family history: No family history on file. Allergies: Allergies Allergen Reactions Latex, Natural Rubber HOME MEDICATIONS: Prior to Admission medications Medication Sig alendronate (FOSAMAX) 70 MG tablet TAKE ONE TABLET BY MOUTH ONCE A WEEK. TAKE ON AN EMPTY STOMACH, SIT UPRIGHT FOR 30 MINUTES AFTER amLODIPine (NORVASC) 5 MG tablet 5 mg, Daily Ca cit-D3-mag#[id number]-rhcp-man-bor (CALTRATE 600+D) 600 mg calcium- 800 unit-50 mg Tab 1 tablet, Daily pravastatin (PRAVACHOL) 20 MG tablet 20 mg, Nightly sulfaSALAzine (AZULFIDINE) 500 mg tablet 1,000 mg, 2 times daily CURRENT MEDICATIONS: Scheduled Meds: lidocaine 1 patch Transdermal Q24H Continuous Infusions: PRN Meds: sodium chloride, 3 mL, PRN Review of Systems: The pertinent positives and negatives are noted in the history of present illness. Otherwise, a full review of systems was completed and is negative. Physical Exam: Last vitals 36.1 ??C (97 ??F) P 84 BP (!) 153/70 RR 18 SpO2 100 % FiO2 73.9 kg (163 lb) General Appearance: Well developed and well nourished in no acute distress HEENT: Normocephalic and atraumatic. Oropharynx is clear without exudate. Mucus membranes are moist. Neck: Supple with no JVD. Heart: Regular rhythm Regular rate No murmur. No rubs or gallops. Lungs: Good air movement. Clear to auscultation bilaterally with no wheezes, rales or rhonchi. Abdomen: Soft, nontender and nondistended. Normoactive bowel sounds. Extremities: No edema. Musculoskeletal: Chest wall tenderness on the right side Lymphatics: No lymphadenopathy. Skin: No visible lesions. Psych: Anxious and tearful Neuro: Nonfocal and grossly intact. Data/Results: CBC: 10.21 \ 12.0 / 339 / 37.8 \ 07/27 1634 BMP: 137 101 12 / 95 4.2 25 0.60 \ 07/27 1634 eGFR Date Value Ref Range Status 07/27/2025 94 >59 mL/min/1.73m2 Final Comment: Estimated glomerular filtration rate calculated using the CKD-EPI refit equation. Calcium Date Value Ref Range Status 07/27/2025 9.4 8.5 - 10.5 mg/dL Final No results found for: PHOS Magnesium Date Value Ref Range Status 07/27/2025 2.1 1.7 - 2.6 mg/dL Final LFTs: Lab Results Component Value Date TP 8.1 07/27/2025 ALB 4.4 07/27/2025 GLOB 3.7 07/27/2025 ALKP 59 07/27/2025 TBILI 0.4 07/27/2025 DBILI 0.1 07/27/2025 Coagulation: Lab Results Component Value Date PT 12.8 07/27/2025 PTINR 1.0 07/27/2025 Imaging Results: CT Chest Result Date: 07/27/2025 CT ABDOMEN/PELVIS WITH CONTRAST, CT CHEST WITH CONTRAST Referring clinician's provided indication for this examination in [facility]: * Abdominal pain, acute, nonlocalized; Fall into bathtub to the right flank/RUQ/lower right chest area; TECHNIQUE: Multidetector-row CTs of the chest, abdomen and pelvis was performed with intravenous contrast using tailored dose modulation techniques. Images were reconstructed in the axial, coronal, and sagittal planes. COMPARISON: XR RIBS 3 OR MORE VIEWS WITH PA CHEST (RIGHT) 12:53:09.000 FINDINGS: CHEST: Lines, Tubes and Devices: none. Lungs: No consolidation or suspicious pulmonary nodules. Pleura: No pleural effusion or pneumothorax. Mediastinum: Heart is not enlarged. No pericardial effusion. Nonaneurysmal thoracic aorta. No thyroid nodule meeting criteria for follow up. Lymph Nodes: No enlarged supraclavicular, axillary, mediastinal, or hilarlymph nodes. Chest Wall: No chest wall mass. Bones: No significant abnormality. Incomplete buckle fractures of right ribs 9- 11. ABDOMEN / PELVIS: Liver: No suspicious lesion. Biliary: No biliary ductal dilatation. Normal gallbladder. Spleen: No splenomegaly or focal lesions. Pancreas: No masses or ductal dilatation. Adrenal Glands: No suspicious nodule. Kidneys/Ureters: No stone or hydronephrosis. Bowel: No wall thickening or dilatation. Noninflamed appendix. Peritoneum/Retroperitoneum: No masses, pneumoperitoneum, or fluid. Lymph Nodes: No lymphadenopathy. Pelvic Organs/Bladder: No mass. Vessels: No abdominal aortic aneurysm. Bones/Soft Tissues: No significant abnormality. Buckling of the lower sacral cortex at the level of S4. 1. Incomplete buckle fractures of right ribs 9-11. No hemopneumothorax. 2. Nondisplaced fracture ofthe inferior sacrum. A clinically significant result was initiated on 07/27/2025 7:20 PM, Message ID [id number]. Abdomen/Pelvis Result Date: 07/27/2025 CT ABDOMEN/PELVIS WITH CONTRAST, CT CHEST WITH CONTRAST Referring clinician's provided indication for this examination in Epic: * Abdominal pain, acute, nonlocalized; Fall into bathtub to the right flank/RUQ/lower right chest area; TECHNIQUE: Multidetector-row CTs of the chest, abdomen and pelvis was performed with intravenous contrast using tailored dose modulation techniques. Images were reconstructed in the axial, coronal, and sagittal planes. COMPARISON: XR RIBS 3 OR MORE VIEWS WITH PA CHEST (RIGHT) 12:53:09.000 FINDINGS: CHEST: Lines, Tubes and Devices: none. Lungs: No consolidation or suspicious pulmonary nodules. Pleura: No pleural effusion or pneumothorax. Mediastinum: Heart is not enlarged. No pericardial effusion. Nonaneurysmal thoracic aorta. No thyroid nodule meeting criteria for follow up. Lymph Nodes: No enlarged supraclavicular, axillary, mediastinal, or hilarlymph nodes. Chest Wall: No chest wall mass. Bones: No significant abnormality. Incomplete buckle fractures of right ribs 9- 11. ABDOMEN / PELVIS: Liver: No suspicious lesion. Biliary: No biliary ductal dilatation. Normal gallbladder. Spleen: No splenomegaly or focal lesions. Pancreas: No masses or ductal dilatation. Adrenal Glands: No suspicious nodule. Kidneys/Ureters: No stone or hydronephrosis. Bowel: No wall thickening or dilatation. Noninflamed appendix. Peritoneum/Retroperitoneum: No masses, pneumoperitoneum, or fluid. Lymph Nodes: No lymphadenopathy. Pelvic Organs/Bladder: No mass. Vessels: No abdominal aortic aneurysm. Bones/Soft Tissues: No significant abnormality. Buckling of the lower sacral cortex at the level of S4. 1. Incomplete buckle fractures of right ribs 9-11. No hemopneumothorax. 2. Nondisplaced fracture ofthe inferior sacrum. A clinically significant result was initiated on 07/27/2025 7:20 PM, Message ID [id number]. Ribs (Right) Result Date: 07/27/2025 XR RIBS 3 OR MORE VIEWS WITH PA CHEST (RIGHT) Referring clinician's provided indication for this examination in Epic: Pain; Trauma; S/P Fall; hx recent fracture COMPARISON: None. No acute displaced right rib fracture. No focal consolidation, pleural effusion, pulmonary edema orpneumothorax. Normal cardiomediastinal silhouette. Atherosclerotic calcification of the aorta. Mildmultilevel degenerative changes of the thoracic spine. Foot (Right) Result Date: 07/27/2025 XR FOOT 3 OR MORE VIEWS (RIGHT) Referring clinician's provided indication for this examination in [facility]: Pain; Trauma; hx recent fracture COMPARISON: None. Osseous demineralization. Linear lucency through the base of the 5th metatarsal, which may represent a nondisplaced fracture or vascular channel. Correlation with area of tenderness is recommended. No dislocation. Mild degenerative changes of the 1st metatarsophalangeal joint. Mild flattening of the 2nd metatarsal head, which is likely chronic. Small dorsal and plantar calcaneal enthesophytes. Assessment: 75-year-old female with a history of hyper tension, hyperlipidemia and osteoporosis. Has a history of metatarsal fracture in her foot and wears a boot. The boot caused her to fall in the shower resulting in closed right rib fractures Plan: Assessment & Plan Multiple closed fractures of ribs of right side Buckle fractures of ribs 9 through 11 on the right side. Pain is a 6/10 and she has a weak cough. Idemonstrated the proper way to do incentive spirometry at the bedside and she was able to get between 800 to 1000 cc. She is 75 years old. RIG score of 6 primarily driven by her age. She was tearful about staying in the hospital. I feel that her biologic age is significantly better than her chronolo gic age. She has multiple family members at the bedside. We had a shared decision about her treatment options including staying in the hospital for pain control, incentive spirometry and physical therapy evaluation although I did not feel the physical therapy evaluation be very fruitful. Alternatively, she could be given pain medications and continue to use incentive spirometer every 1-2 hours athome. She was very concerned about staying in the hospital and potentially matilde a respiratory viral infection. Additionally, she states that her was recently admitted to the hospital and she felt that his care was subpar and this is fear for for her as well. With this in mind, she is electing to be discharged home from the emergency department. This was discussed with the ED provider. Patient was strongly encouraged to return to the emergency department should she develop any complications. She and her family stated their understanding. She will be prescribed oxycodone/oral morphine for moderate to severe pain and can use Tylenol/ibuprofen as needed for mild pain. She will have lidocaine patches. She is encouraged to take stool softeners and can use melatonin for sleep if necessary. BILLING Quality Clinical Documentation: Carlos Parry DO I discussed my recommendations with Dr. Shona Urbina. Thank you for this consultation. Medicine team will sign off at this time. Please reconsult us if needed. Portions of this note were dictated utilizing a speech recognition software. Please contact me withany questions. documented in this encounter ED Notes * Ammy Valdes, RN - 07/27/2025 10:21 PM EST ED Discharge Nursing Note Pt alert, calm in no acute distress, advised to follow up with pcp. All dc instructions reviewed with and son at bedside as well. * Ammy Valdes RN - 07/27/2025 8:59 PM EST ED RN Handoff (All [place] Below Must Be Completed) Reason for Admission: rib pain Diagnosis: fracture Type of Admission: [x]MedSurg []Telemetry []Remote Room Considerations/Precautions (ex.fever, cough, diarrhea,or any infectious process): na Manager Gyn: []Yes [x]No If yes, Cardiac Rhythm: Reason for Manager Gyn: Current Mental Status: aox4 Current Ambulation Status: steady on own on arrival but in pain IV Access: [x]Yes []No Field IV Present: []Yes [x]No History of Violence: []Yes [x]No []Unknown Fall Risk: []Yes [x]No Patient belongings inventoried []Yes [x]No Patient belongings stored in the Security closet []Yes [x]No ED Nurse Phone Number: [phone] ED Summary of Care: iv for ct and pain meds. Incentive spirometer teaching, up to 1500 with goal [id number]. Pt reports pain relief as low as 4/10 with 2mg morphine x 2. VSS TRIAGE NOTE: Patient came from urgent care. They did xrays. Fell this AM on right side. Patient c/oright sided pain wrapping around abdomen. Denies LOC or head injury. - thinners. Ambulates slow steady gait with assistance. Submitted by: Ammy Valdes RN * Ammy Valdes RN - 07/27/2025 8:07 PM EST ED Nursing Progress Note Pt given incentive spirameter with teaching. * Ammy Valdes RN - 07/27/2025 6:02 PM EST ED Nursing Progress Note Pt back from CT, awaiting results. * Ammy Valdes RN - 07/27/2025 3:00 PM EST ED Nursing Progress Note Pt here after mechanical fall in bathroom, landing on right side. Pt reports rights side back pain,and rib pain. Xray done at urgent care [facility] with no significant findings. She reports they are concerned about a liver injury. Pt ambulatory with slow steady gait on own on arrival, placed on monitor, changed into gown and awaiting eval by provider. * Yudy Hartley RN - 07/27/2025 1:58 PM EST Patient came from urgent care. They did xrays. Fell this AM on right side. Patient c/o right sided pain wrapping around abdomen. Denies LOC or head injury. - thinners. Ambulates slow steady gait withassistance. * Shona Urbina MD - 07/27/2025 1:46 PM EST Chief Complaint Chief Complaint Patient presents with Fall History of Present Illness The patient, Eliz Cobb,is a 75 y.o. female who presents for evaluation of Fall Patient is a 75-year-old female presenting to the emergency department after a fall. The patient a few months ago had a metatarsal fracture of her right foot for which has been improving however in the shower, the patient had bared weight on that foot, lost balance, slipped and fell onto the right side hitting the porcelain of the bathtub. The patient did not hit her head, the patient did not lose any consciousness, the patient is not on any blood thinners. The patient stated bad lower chest wall/right upper quadrant pain for which the patient had gone to urgent care. Urgent care had done x-rays however recommended that the patient present to the emergency department for further evaluation.The patient denies any nausea, vomiting, headaches, but she does state some pain upon inspiration on the right side of her chest. Unless otherwise specified, I have reviewed and agree with the triage and nursing notes. ROS A ten point review of systems was negative except what was noted in the HPI. Review of Systems Constitutional: Negative for activity change, appetite change, fatigue and fever. Respiratory: Negative for cough, shortness of breath and wheezing. Cardiovascular: Positive for chest pain. Negative for palpitations and leg swelling. Gastrointestinal: Negative for abdominal distention, abdominal pain, constipation, diarrhea, nauseaand vomiting. Genitourinary: Negative for decreased urine volume, dysuria, flank pain and urgency. Musculoskeletal: Negative for gait problem. Skin: Negative for color change, pallor and wound. Neurological: Negative for dizziness, tremors, syncope, light-headedness, numbness and headaches. All other systems reviewed and are negative. Past Medical History Past Medical History: Diagnosis Date Arthritis Hyperlipidemia Past Surgical History No past surgical history on file. Home Medications Prior to Admission medications Medication Sig alendronate (FOSAMAX) 70 MG tablet TAKE ONE TABLET BY MOUTH ONCE A WEEK. TAKE ON AN EMPTY STOMACH, SIT UPRIGHT FOR 30 MINUTES AFTER amLODIPine (NORVASC) 5 MG tablet 5 mg, Daily Ca cit-D3-mag#[id number]-uasd-man-bor (CALTRATE 600+D) 600 mg calcium- 800 unit-50 mg Tab 1 tablet, Daily pravastatin (PRAVACHOL) 20 MG tablet 20 mg, Daily sulfaSALAzine (AZULFIDINE) 500 mg tablet 1,000 mg, 2 times daily Allergies Allergies Allergen Reactions Latex, Natural Rubber Social and Family History Social History Tobacco Use Smoking status: Never Smokeless tobacco: Never Substance Use Topics Alcohol use: Not on file Social History Substance and Sexual Activity Drug Use Not on file No family history on file. Physical Exam Vital Signs: ED Triage Vitals [07/27/25 1400] Encounter Vitals Group BP (!) 153/77 Girls Systolic BP Percentile Girls Diastolic BP Percentile Boys Systolic BP Percentile Boys Diastolic BP Percentile Heart Rate 80 Respiratory Rate 20 Temperature 36.1 ??C (97 ??F) Temp Source Tympanic SpO2 100 % Weight 163 lb Height 5' 5 Head Circumference Peak Flow Pain Score Pain Loc Pain Education Exclude from Growth Chart Physical Exam Vitals and nursing note reviewed. Constitutional: General: She is not in acute distress. Appearance: Normal appearance. She is normal weight. She is not ill-appearing or toxic-appearing. HENT: Head: Normocephalic. Mouth/Throat: Mouth: Mucous membranes are moist. Pharynx: Oropharynx is clear. Eyes: Extraocular Movements: Extraocular movements intact. Conjunctiva/sclera: Conjunctivae normal. Pupils: Pupils are equal, round, and reactive to light. Cardiovascular: Rate and Rhythm: Normal rate and regular rhythm. Pulses: Normal pulses. Heart sounds: Normal heart sounds. No murmur heard. Comments: Chest wall tenderness to the right posterior lateral lower area without any bruises or gross deformities Pulmonary: Effort: Pulmonary effort is normal. No respiratory distress. Breath sounds: Normal breath sounds. No wheezing. Abdominal: General: There is no distension. Palpations: Abdomen is soft. Tenderness: There is no abdominal tenderness. There is no guarding or rebound. Musculoskeletal: General: No deformity. Normal range of motion. Cervical back: Normal range of motion. No rigidity or tenderness. Skin: General: Skin is warm and dry. Capillary Refill: Capillary refill takes less than 2 seconds. Coloration: Skin is not pale. Findings: No erythema or rash. Neurological: General: No focal deficit present. Mental Status: She is alert and oriented to person, place, and time. Mental status is at baseline. Cranial Nerves: No cranial nerve deficit. Sensory: No sensory deficit. Motor: No weakness. Laboratory Testing No results found for this visit on 07/27/25. Radiology Testing No orders to display MDM Assessment and Plan: Patient is a 75-year-old female presenting to the emergency department after a mechanical fall. Thepatient upon arrival is not tachycardic or tachypneic, saturating well on room air, is toxic-appearing however is uncomfortable and is noted to be standing secondary to her discomfort. Patient without any bruises on anywhere of her body and she does have significant chest wall pain to the right posterior and lateral portions of her chest wall. Patient does have minimal right upper quadrant tenderness. No evidence of distention, rigidity or guarding. No peritonitic signs at this time. No cervical, thoracic or lumbar spinal tenderness. Patient continues to deny hitting her head. Given her exquisite pain, and this fall, will plan for CT chest abdomen and pelvis to evaluate for any evidence of rib fractures, or intra-abdominal injuries. Will plan for basic labs, type and screen, and analgesia in the interim. 8:[address] chest abdomen pelvis was significant for incomplete 3 right rib fractures of 9-11. No evidence of pneumohemothorax. Patient's abdomen CT was significant for a nondisplaced fracture of the inferiorsacrum. Of note, the patient has been ambulatory during this ER visit and has no hip pain. Patient conducted an 800 on the incentive spirometry after being given a total of 4 mg of morphine, baclofen and lidocaine patch. Patient with a RIG score of 5 (4 for being over 68 and 1 for a 6 out of 10 pain). Will plan to discuss with the patient concerning admission for continued pain. 9:53 PM Initially discussed with the hospitalist with intent to admit the patient however the patient stated that she had a bad experience with a family member in the hospital and would prefer at this time not to be admitted. The patient understands the risks if she does not continue adequate multimodal pain management as well as incentive spirometry multiple times hourly. Patient is agreeable to discharge at this time per her preference, was instructed a multimodal pain regimen of anti-inflammatory agents, antispasmodic agents, and lidocaine patch and breakthrough OxyContin and given strict return precautions. Patient given Tylenol Motrin and a pill of oxycodone here with a safe ride home. Patient otherwise given strict return precautions and advised PCP follow-up. Category 1: Tests, Studies or Independent Historians: Prior Data Reviewed: Prior notes reviewed. Category 2 and 3: Independent Interpretation of Tests, Consideration of Tests, or External Discussion of Results: Labs: Laboratory studies were interpreted. Radiology: Radiology studies were independently interpreted. Risks of Complications, Morbidity, or Mortality: Risks: Risks and benefits of admission to the hospital discussed with patient. Necessity for prescription medication was discussed. A medication was administered that required monitoring. Clinical Impressions as of 07/27/252151 Fall, initial encounter Closed fracture of multiple ribs of right side, initial encounter Clinical Impression None Disposition: Home Shona Urbina MD 07/28/25 0330 documented in this encounter Miscellaneous Notes * Assessment & Plan Note - Carlos Parry, - 07/27/2025 9:30 PM EST Associated Problem(s): Multiple closed fractures of ribs of right side Buckle fractures of ribs 9 through 11 on the right side. Pain is a 6/10 and she has a weak cough. Idemonstrated the proper way to do incentive spirometry at the bedside and she was able to get between 800 to 1000 cc. She is 75 years old. RIG score of 6 primarily driven by her age. She was tearful about staying in the hospital. I feel that her biologic age is significantly better than her chronolo gic age. She has multiple family members at the bedside. We had a shared decision about her treatment options including staying in the hospital for pain control, incentive spirometry and physical therapy evaluation although I did not feel the physical therapy evaluation be very fruitful. Alternatively, she could be given pain medications and continue to use incentive spirometer every 1-2 hours athome. She was very concerned about staying in the hospital and potentially matilde a respiratory viral infection. Additionally, she states that her was recently admitted to the hospital and she felt that his care was subpar and this is fear for for her as well. With this in mind, she is electing to be discharged home from the emergency department. This was discussed with the ED provider. Patient was strongly encouraged to return to the emergency department should she develop any complications. She and her family stated their understanding. She will be prescribed oxycodone/oral morphine for moderate to severe pain and can use Tylenol/ibuprofen as needed for mild pain. She will have lidocaine patches. She is encouraged to take stool softeners and can use melatonin for sleep if necessary. documented in this encounter Plan of Treatment Not on file documented as of this encounter Procedures Procedure Name Priority Date/Time Associated Diagnosis Comments CT CHEST WITH CONTRAST Routine 07/27/2025 5:[address] ABDOMEN/PELVIS WITH CONTRAST Routine 07/27/2025 5:34 PM EST ABO2F - 2ND TYPE (NEW SAMPLE) STAT 07/27/2025 5:12 PM EST TYPE AND SCREEN (ABO, RH, ANTIBODY SCREEN) STAT 07/27/2025 4:34 PM EST CBC AND DIFFERENTIAL STAT 07/27/2025 4:34 PM EST LFTS (HEPATIC PANEL) STAT 07/27/2025 4:34 PM EST PT-INR STAT 07/27/2025 4:34 PM EST CBC AND DIFFERENTIAL STAT 07/27/2025 4:34 PM EST TYPE AND SCREEN (ABO,RH,ANTIBODY SCREEN) STAT 07/27/2025 4:34 PM EST MAGNESIUM STAT 07/27/2025 4:34 PM EST BASIC METABOLIC PANEL (BMP) STAT 07/27/2025 4:34 PM EST documented in this encounter Results * CT ABDOMEN/PELVIS WITH CONTRAST (07/27/2025 5:34 PM EST) [facility] IMG FULFILLMENT MAIL CLERK COMMENT Incomplete buckle fractures of right ribs 9-11. No hemopneumothorax . Nondisplaced fracture of the inferior sacrum. [facility] Anatomical Region Laterality Modality Abdomen, Pelvis Computed Tomogra phy 07/27/2025 7:04 PM EST Impressions 07/27/2025 7:21 PM EST 1. Incomplete buckle fractures of right ribs 9-11. No hemopneumothorax. 2. Nondisplaced fracture of the inferior sacrum. A clinically significant result was initiated on 07/27/2025 7:20 PM, Message ID [id number]. Narrative 07/27/2025 7:[address] ABDOMEN/PELVIS WITH CONTRAST, CT CHEST WITH CONTRAST Referring clinician's provided indication for this examination in [facility]: * Abdominal pain, acute, nonlocalized; Fall into bathtub to the right flank/RUQ/lower right chest area; TECHNIQUE: Multidetector-row CTs of the chest, abdomen and pelvis was performed with intravenous contrast using tailored dose modulation techniques. Images were reconstructed in the axial, coronal, and sagittal planes. COMPARISON: XR RIBS 3 OR MORE VIEWS WITH PA CHEST (RIGHT) 12:53:09.000 FINDINGS: CHEST: Lines, Tubes and Devices: none. Lungs: No consolidation or suspicious pulmonary nodules. Pleura: No pleural effusion or pneumothorax. Mediastinum: Heart is not enlarged. No pericardial effusion. Nonaneurysmal thoracic aorta. No thyroid nodule meeting criteria for follow up. Lymph Nodes: No enlarged supraclavicular, axillary, mediastinal, or hilar lymph nodes. Chest Wall: No chest wall mass. Bones: No significant abnormality. Incomplete buckle fractures of right ribs 9- 11. ABDOMEN / PELVIS: Liver: No suspicious lesion. Biliary: No biliary ductal dilatation. Normal gallbladder. Spleen: No splenomegaly or focal lesions. Pancreas: No masses or ductal dilatation. Adrenal Glands: No suspicious nodule. Kidneys/Ureters: No stone or hydronephrosis. Bowel: No wall thickening or dilatation. Noninflamed appendix. Peritoneum/Retroperitoneum: No masses, pneumoperitoneum, or fluid. Lymph Nodes: No lymphadenopathy. Pelvic Organs/Bladder: No mass. Vessels: No abdominal aortic aneurysm. Bones/Soft Tissues: No significant abnormality. Buckling of the lower sacral cortex at the level of S4. Procedure Note Isidro Flores MD - 07/27/2025 CT ABDOMEN/PELVIS WITH CONTRAST, CT CHEST WITH CONTRAST Referring clinician's provided indication for this examination in [facility]: *Abdominal pain, acute, nonlocalized; Fall into bathtub to the rightflank/RUQ/lower right chest area; TECHNIQUE: Multidetector-row CTs of the chest, abdomen and pelvis wasperformed with intravenous contrast using tailored dose modulationtechniques. Images were reconstructed in the axial, coronal, and sagittalplanes. COMPARISON: XR RIBS 3 OR MORE VIEWS WITH PA CHEST (RIGHT) :53:09.000 FINDINGS: CHEST: Lines, Tubes and Devices: none. Lungs: No consolidation or suspicious pulmonary nodules. Pleura: No pleural effusion or pneumothorax. Mediastinum: Heart is not enlarged. No pericardial effusion.Nonaneurysmal thoracic aorta. No thyroid nodule meeting criteria forfollow up. Lymph Nodes: No enlarged supraclavicular, axillary, mediastinal, or hilarlymph nodes. Chest Wall: No chest wall mass. Bones: No significant abnormality. Incomplete buckle fractures of rightribs 9- 11. ABDOMEN / PELVIS: Liver: No suspicious lesion. Biliary: No biliary ductal dilatation. Normal gallbladder. Spleen: No splenomegaly or focal lesions. Pancreas: No masses or ductal dilatation. Adrenal Glands: No suspicious nodule. Kidneys/Ureters: No stone or hydronephrosis. Bowel: No wall thickening or dilatation. Noninflamed appendix. Peritoneum/Retroperitoneum: No masses, pneumoperitoneum, or fluid. Lymph Nodes: No lymphadenopathy. Pelvic Organs/Bladder: No mass. Vessels: No abdominal aortic aneurysm. Bones/Soft Tissues: No significant abnormality. Buckling of the lowersacral cortex at the level of S4. IMPRESSION: 1. Incomplete buckle fractures of right ribs 9-11. No hemopneumothorax. 2. Nondisplaced fracture of the inferior sacrum. A clinically significant result was initiated on 07/27/2025 7:20 PM,Message ID [id number]. us Shona Urbina MD G CT ABD/PELVIS Final Resu lt * CT CHEST WITH CONTRAST (07/27/2025 5:34 PM EST) MGB IMG FULFILLMENT MAIL CLERK COMMENT Incomplete buckle fractures of right ribs 9-11. No hemopneumothorax . Nondisplaced fracture of the inferior sacrum. [facility] Anatomical Region Laterality Modality Chest Computed Tomogra phy 07/27/2025 7:04 PM EST Impressions 07/27/2025 7:21 PM EST 1. Incomplete buckle fractures of right ribs 9-11. No hemopneumothorax. 2. Nondisplaced fracture of the inferior sacrum. A clinically significant result was initiated on 07/27/2025 7:20 PM, Message ID [id number]. Narrative 07/27/2025 7:[address] ABDOMEN/PELVIS WITH CONTRAST, CT CHEST WITH CONTRAST Referring clinician's provided indication for this examination in [facility]: * Abdominal pain, acute, nonlocalized; Fall into bathtub to the right flank/RUQ/lower right chest area; TECHNIQUE: Multidetector-row CTs of the chest, abdomen and pelvis was performed with intravenous contrast using tailored dose modulation techniques. Images were reconstructed in the axial, coronal, and sagittal planes. COMPARISON: XR RIBS 3 OR MORE VIEWS WITH PA CHEST (RIGHT) 12:53:09.000 FINDINGS: CHEST: Lines, Tubes and Devices: none. Lungs: No consolidation or suspicious pulmonary nodules. Pleura: No pleural effusion or pneumothorax. Mediastinum: Heart is not enlarged. No pericardial effusion. Nonaneurysmal thoracic aorta. No thyroid nodule meeting criteria for follow up. Lymph Nodes: No enlarged supraclavicular, axillary, mediastinal, or hilar lymph nodes. Chest Wall: No chest wall mass. Bones: No significant abnormality. Incomplete buckle fractures of right ribs 9- 11. ABDOMEN / PELVIS: Liver: No suspicious lesion. Biliary: No biliary ductal dilatation. Normal gallbladder. Spleen: No splenomegaly or focal lesions. Pancreas: No masses or ductal dilatation. Adrenal Glands: No suspicious nodule. Kidneys/Ureters: No stone or hydronephrosis. Bowel: No wall thickening or dilatation. Noninflamed appendix. Peritoneum/Retroperitoneum: No masses, pneumoperitoneum, or fluid. Lymph Nodes: No lymphadenopathy. Pelvic Organs/Bladder: No mass. Vessels: No abdominal aortic aneurysm. Bones/Soft Tissues: No significant abnormality. Buckling of the lower sacral cortex at the level of S4. Procedure Note Isidro Flores MD - 07/27/2025 CT ABDOMEN/PELVIS WITH CONTRAST, CT CHEST WITH CONTRAST Referring clinician's provided indication for this examination in [facility]: *Abdominal pain, acute, nonlocalized; Fall into bathtub to the rightflank/RUQ/lower right chest area; TECHNIQUE: Multidetector-row CTs of the chest, abdomen and pelvis wasperformed with intravenous contrast using tailored dose modulationtechniques. Images were reconstructed in the axial, coronal, and sagittalplanes. COMPARISON: XR RIBS 3 OR MORE VIEWS WITH PA CHEST (RIGHT) :53:09.000 FINDINGS: CHEST: Lines, Tubes and Devices: none. Lungs: No consolidation or suspicious pulmonary nodules. Pleura: No pleural effusion or pneumothorax. Mediastinum: Heart is not enlarged. No pericardial effusion.Nonaneurysmal thoracic aorta. No thyroid nodule meeting criteria forfollow up. Lymph Nodes: No enlarged supraclavicular, axillary, mediastinal, or hilarlymph nodes. Chest Wall: No chest wall mass. Bones: No significant abnormality. Incomplete buckle fractures of rightribs 9- 11. ABDOMEN / PELVIS: Liver: No suspicious lesion. Biliary: No biliary ductal dilatation. Normal gallbladder. Spleen: No splenomegaly or focal lesions. Pancreas: No masses or ductal dilatation. Adrenal Glands: No suspicious nodule. Kidneys/Ureters: No stone or hydronephrosis. Bowel: No wall thickening or dilatation. Noninflamed appendix. Peritoneum/Retroperitoneum: No masses, pneumoperitoneum, or fluid. Lymph Nodes: No lymphadenopathy. Pelvic Organs/Bladder: No mass. Vessels: No abdominal aortic aneurysm. Bones/Soft Tissues: No significant abnormality. Buckling of the lowersacral cortex at the level of S4. IMPRESSION: 1. Incomplete buckle fractures of right ribs 9-11. No hemopneumothorax. 2. Nondisplaced fracture of the inferior sacrum. A clinically significant result was initiated on 07/27/2025 7:20 PM,Message ID [id number]. Shona Urbina MD [facility] [place] Final Result * 2nd Type (New Sample) (07/27/2025 5:12 PM EST) ABO/RH B Positive 07/27/2025 5:55 PM EST [facility] Blood (Blood) Venipuncture / Unknown 07/27/2025 5:12 PM EST 07/27/2025 5:17 PM EST Shona Urbina MD LAB BLOOD BANK TEST ORDERABL ES Final Result Performing Organization Address City/[facility]/ZIP Co de Phone Number [facility], [address] [place] [phone] [address] * Type and Screen (ABO, Rh, Antibody Screen) (07/27/2025 4:34 PM EST) Pathologist [facility] ABO/RH B Positive 07/27/2025 5:21 PM EST [facility] Antibody Screen Negative 07/27/2025 5:21 PM [facility] Sample Expires 07/30/2025,2 359 07/27/2025 5:21 PM [facility] Blood (Blood) Venipuncture / Unknown 07/27/2025 4:34 PM EST 07/27/2025 4:37 PM EST Shona Urbina MD LAB BLOOD BANK TEST ORDERABL ES Final Result Performing Organization Address City/[facility]/ZIP Co de Phone Number [facility], [address] [place] [phone] [address] * (ABNORMAL) CBC and Differential (07/27/2025 4:34 PM EST) Pathologist [facility] WBC 10.21 4.00 - 11.00 K/uL 07/27/2025 4:40 PM [facility] RBC 3.77(L) 4.00 - 5.20 M/uL 07/27/2025 4:40 PM [facility] Hemoglobin 12.0 12.0 - 16.0 g/dL 07/27/2025 4:40 PM [facility] Hematocrit 37.8 36.0 - 46.0 % 07/27/2025 4:40 PM [facility] MCV 100.3(H) 80.0 - 100.0 fL 07/27/2025 4:40 PM [facility] MCH 31.8(H) 27.0 - 31.0 pg 07/27/2025 4:40 PM [facility] MCHC 31.7(L) 32.0 - 36.0 g/dL 07/27/2025 4:40 PM [facility] MPV 9.9 8.4 - 12.0 fL 07/27/2025 4:40 PM [facility] RDW-CV 12.4 11.5 - 14.5 % 07/27/2025 4:40 PM [facility] PLT 339 150 - 450 K/uL 07/27/2025 4:40 PM [facility] Neutrophils 79.6 % 07/27/2025 4:40 PM [facility] Lymphocytes 13.0 % 07/27/2025 4:40 PM [facility] Monocytes 6.7 % 07/27/2025 4:40 PM [facility] Eosinophils 0.0 % 07/27/2025 4:40 PM [facility] Basophils 0.3 % 07/27/2025 4:40 PM [facility] Imm Grans 0.4 % 07/27/2025 4:40 PM [facility] NRBC 0.0 <=0.0 /100 WBCs 07/27/2025 4:40 PM [facility] Absolute Neutrophils 8.13(H) 1.92 - 7.60 K/uL 07/27/2025 4:40 PM [facility] Absolute Lymphocytes 1.33 0.72 - 4.10 K/uL 07/27/2025 4:40 PM [facility] Absolute Monocytes 0.68 0.16 - 1.10 K/uL 07/27/2025 4:40 PM [facility] Absolute Eosinophils 0.00 0.00 - 0.50 K/uL 07/27/2025 4:40 PM [facility] Absolute Basophils 0.03 0.00 - 0.15 K/uL 07/27/2025 4:40 PM [facility] Absolute Imm Grans 0.04 0.00 - 0.09 K/uL 07/27/2025 4:40 PM [facility] Absolute NRBC 0.00 <=0.00 K cells/uL 07/27/2025 4:40 PM [facility] Absolute Neutrophils 8.13(H) 1.92 - 7.60 K/uL 07/27/2025 4:40 PM [facility] Comment:Automated cell count . Manual ANC may differ if performed. Diff Type Auto 07/27/2025 4:40 PM [facility] Blood (Blood) Venipuncture / Unknown 07/27/2025 4:34 PM EST 07/27/2025 4:37 PM EST Shona Urbina MD LAB BLOOD BKR ORDERABLES Fin al Result Performing Organization Address City/[facility]/ZIP Co de Phone Number [address] [address] * PT-INR (07/27/2025 4:34 PM EST) PT 12.8 10.0 - 13.0 sec 07/27/2025 5:10 PM [facility] INR 1.0 0.9 - 1.1 07/27/2025 5:10 PM [facility] Comment:Therapeutic Range 2. 0 - 3.5 Blood (Blood) Venipuncture / Unknown 07/27/2025 4:34 PM EST 07/27/2025 4:37 PM EST Shona Urbina MD LAB BLOOD BKR ORDERABLES Fin al Result [address] [address] * Magnesium (07/27/2025 4:34 PM EST) Magnesium 2.1 1.7 - 2.6 mg/dL 07/27/2025 5:06 PM [facility] Blood (Blood) Venipuncture / Unknown 07/27/2025 4:34 PM EST 07/27/2025 4:37 PM EST Shona Urbina MD LAB BLOOD BKR ORDERABLES Fin al Result Performing Organization Address City/[facility]/ZIP Co de Phone Number [address] [address] * Hepatic Panel (LFTs) (07/27/2025 4:34 PM EST) AST 24 <33 U/L 07/27/2025 5:06 PM [facility] ALT 15 <34 U/L 07/27/2025 5:06 PM [facility] Alkaline Phosphatase 59 40 - 130 U/L 07/27/2025 5:06 PM [facility] Bilirubin, Total 0.4 0.0 - 1.2 mg/dL 07/27/2025 5:06 PM [facility] Bilirubin, Direct 0.1 0.0 - 0.3 mg/dL 07/27/2025 5:06 PM [facility] Total Protein 8.1 6.4 - 8.3 g/dL 07/27/2025 5:06 PM [facility] Albumin 4.4 3.5 - 5.2 g/dL 07/27/2025 5:06 PM [facility] Globulin 3.7 1.9 - 4.1 g/dL 07/27/2025 5:06 PM [facility] Blood (Blood) Venipuncture / Unknown 07/27/2025 4:34 PM EST 07/27/2025 4:37 PM EST Shona Urbina MD LAB BLOOD BKR ORDERABLES Fin al Result [address] [address] * Basic Metabolic Panel (BMP) (07/27/2025 4:34 PM EST) Sodium 137 136 - 145 mmol/L 07/27/2025 5:06 PM [facility] Potassium 4.2 3.4 - 5.1 mmol/L 07/27/2025 5:06 PM [facility] Chloride 101 98 - 107 mmol/L 07/27/2025 5:06 PM [facility] CO2 25 20 - 31 mmol/L 07/27/2025 5:06 PM [facility] Anion Gap 11 3 - 17 mmol/L 07/27/2025 5:06 PM [facility] BUN 12 6 - 23 mg/dL 07/27/2025 5:06 PM [facility] Creatinine 0.60 0.50 - 1.00 mg/dL 07/27/2025 5:06 PM [facility] eGFR 94 >59 mL/min/1.7 3m2 07/27/2025 5:06 PM [facility] Comment:Estimated glomerular filtration rate calculated using the CKD-EPI refit equation. Glucose 95 70 - 99 mg/dL 07/27/2025 5:06 PM [facility] Calcium 9.4 8.5 - 10.5 mg/dL 07/27/2025 5:06 PM [facility] Blood (Blood) Venipuncture / Unknown 07/27/2025 4:34 PM EST 07/27/2025 4:37 PM EST us Shona Urbina MD LAB BLOOD BKR ORDERABLES Fin al Result Performing Organization Address City/State/[facility] Co de Phone Number [address] [address] documented in this encounter Visit Diagnoses Diagnosis Fall, initial encounter- Primary Closed fracture of multiple ribs of right side, initial encounter Multiple closed fractures of ribs of right side documented in this encounter Administered Medications Inactive Administered Medications - up to 3 most recent administrations Medication Order MAR Action Action Date Dose Rate Site acetaminophen (TYLENOL) tablet 650 mg 650 mg, Oral, Once, On 07/27/25 at 2200, For 1 dose Given 07/27/2025 10:05 PM EST 650 mg baclofen (LIORESAL) tablet 5 mg 5 mg, Oral, Once, On 07/27/25 at 2000, For 1 dose, Administer with food or milk. Given 07/27/2025 8:02 PM EST 5 mg ibuprofen (ADVIL,MOTRIN) tablet 400 mg 400 mg, Oral, Once, On 07/27/25 at 2200, For 1 dose Given 07/27/2025 10:05 PM EST 400 mg iohexoL (OMNIPAQUE-350) 350 mg iodine/mL solution 75 mL 75 mL, Intravenous, Once as needed, pre procedure/treatment, Starting on 07/27/25 at 1718, For 1 dose, Procedural Contrast/Med Active Now, Each mL contains 755 mg of iohexol equivalent to 350 mg of organic iodine. Given 07/27/2025 5:28 PM EST 75 mL lidocaine 4 % 1 patch 1 patch, Transdermal, Administer over 12 Hours, Every 24 hours, First dose on 07/27/25 at 1615, Apply to right lower chest Do not place external heat sources such as heating pads over patches. Patch Applied 07/27/2025 4:42 PM EST 1 patch Back lidocaine 4 % 1 patch 1 patch, Transdermal, Administer over 12 Hours, Every 24 hours, First dose on 07/27/25 at 2230, Apply to back Do not place external heat sources such as heating pads over patches. Patch Applied 07/27/2025 10:24 PM EST 1 patch Back morphine injection syringe 2 mg 2 mg, Intravenous, Once, On 07/27/25 at 1615, For 1 dose Given 07/27/2025 4:45 PM EST 2 mg morphine injection syringe 2 mg 2 mg, Intravenous, Once, On 07/27/25 at 1815, For 1 dose Given 07/27/2025 6:20 PM EST 2 mg ondansetron (PF) (ZOFRAN) injection 4 mg 4 mg, Intravenous, Once as needed, vomiting, nausea, Starting on 07/27/25 at 1608, For 1 dose Given 07/27/2025 4:42 PM EST 4 mg oxyCODONE tablet 5 mg 5 mg, Oral, Once, On 07/27/25 at 2200, For 1 dose Given 07/27/2025 10:05 PM EST 5 mg sodium chloride (NS) 0.9 % syringe flush 3 mL 3 mL, Intravenous, As needed, line care, Starting on 07/27/25 at 1606, Per Institutional IV Line Care Policy. documented in this encounter Active and Recently Administered Medications Times are shown in EST. Scheduled Medication Order 07/25/2025 07/26/2025 07/27/2025 acetaminophen (TYLENOL) tablet 650 mg (COMPLETED) 650 mg, Oral, Once, On 07/27/25 at 2200, For 1 dose 2204 (Given - Provid er: Ammy Valdes RN) baclofen (LIORESAL) tablet 5 mg (COMPLETED) 5 mg, Oral, Once, On 07/27/25 at 2000, For 1 dose, Administer with food or milk. 2001 (Given - Provid er: Ammy Valdes RN) ibuprofen (ADVIL,MOTRIN) tablet 400 mg (COMPLETED) 400 mg, Oral, Once, On 07/27/25 at 2200, For 1 dose 2204 (Given - Provid er: Ammy Valdes RN) lidocaine 4 % 1 patch 1 patch, Transdermal, Administer over 12 Hours, Every 24 hours, First dose on 07/27/25 at 1615, Apply to right lower chest Do not place external heat sources such as heating pads over patches. 1641 (Patch Applied - Provider: Ammy Valdes RN)2235 (Due: Patch Removed - Provider: Automatic Discharge Provider - Comment: Time automatically adjusted from order being discontinued) lidocaine 4 % 1 patch 1 patch, Transdermal, Administer over 12 Hours, Every 24 hours, First dose on 07/27/25 at 2230, Apply to back Do not place external heat sources such as heating pads over patches. 2223 (Patch Applied - Provider: Ammy Valdes RN - Comment: given to pt for home use at provider request)2235 (Due: Patch Removed - Provider: Automatic Discharge Provider - Comment: Time automatically adjusted from order being discontinued) morphine injection syringe 2 mg (COMPLETED) 2 mg, Intravenous, Once, On 07/27/25 at 1615, For 1 dose 164 (Given - Provid er: Ammy Valdes RN) morphine injection syringe 2 mg (COMPLETED) 2 mg, Intravenous, Once, On 07/27/25 at 1815, For 1 dose 182 (Given - Provid er: Ammy Valdes RN) oxyCODONE tablet 5 mg (COMPLETED) 5 mg, Oral, Once, On 07/27/25 at 2200, For 1 dose 2204 (Given - Provid er: Ammy Valdes RN) PRN Medication Order 07/25/2025 07/26/2025 07/27/2025 iohexoL (OMNIPAQUE-350) 350 mg iodine/mL solution 75 mL (COMPLETED) 75 mL, Intravenous, Once as needed, pre procedure/treatment, Starting on 07/27/25 at 1718, For 1 dose, Procedural Contrast/Med Active Now, Each mL contains 755 mg of iohexol equivalent to 350 mg of organic iodine. 1728 (Given - Provid er: Buddy Romero) ondansetron (PF) (ZOFRAN) injection 4 mg (COMPLETED) 4 mg, Intravenous, Once as needed, vomiting, nausea, Starting on 07/27/25 at 1608, For 1 dose 1642 (Given - Provid er: Ammy Valdes RN) sodium chloride (NS) 0.9 % syringe flush 3 mL 3 mL, Intravenous, As needed, line care, Starting on 07/27/25 at 1606, Per Institutional IV Line Care Policy. documented in this encounter Care Teams Washroom Attendant Relationship Specialty Start Date End Date Tana East MD [address] [place], [place] [id number] PCP - General Internal Medicine 07/27/25 documented as of this encounter Additional Source Comments The information contained in this document represents components of the legal health record. It is not the complete legal health record.[facility]
--- NOTE | 2025-07-30 10:28 | A.OFFPC_ITS ---
Vital Signs 07/30/25 10:30 Height 5 ft 5.5 in Weight 135 lb BMI 22.1 BP 110/64 Blood Pressure Location Lt brachial Position Sitting Respiration 16 Pulse 60 Pulse Source Pulse Oximeter Temp 96.8 F Temp Source Temporal Artery Scan Pulse Oximetry (%) 97 Oxygen Delivery Method Room Air Intake Visit Reasons: Follow up to ED visit due to fall on 07/27 Strip Presser Required: No Accompanied by: Spouse Allergies latex Allergy (Intermediate, Verified 07/30/25 10:33) Rash Medication List - Last Reconciled 07/30/25 by Tana East MD acetaminophen (Tylenol) 650 mg PO Q6H PRN alendronate 70 mg PO QWEEK amlodipine 5 mg PO DAILY multivitamin with folic acid 400 mcg (Daily-Victor Manuel (with folic acid)) 1 tab PO DAILY oxycodone 5 mg PO Q8H PRN pravastatin 20 mg PO DAILY sennosides (senna) 17.2 mg PO DAILY sulfasalazine 1.5 grams PO BID Tobacco use date assessed: 07/30/25 Fall risk assessment: 2 + Falls in past year Last assessed Fall Risk: 07/30/25 Dental Screening Dental Screen Date: 07/30/25 Did you have a dental visit in the last 12 months?: No Did you have a dental problem in the last 6 months where you did not have access to dental care?: No HPI HPI Comments History of Present Illness Details The patient is a 75 year old female presenting for follow-up and management after a recent fall. Was seen at [facility] ER. Multiple Rib and Sacral Fracture: On Monday, the patient fell backward in the shower onto a 4-inch ridge after the patient's foot slipped. The patient experienced an instantaneous, hard impact, with severe pain and inability to breathe, and could not get up. The patient was taken to an urgent care facility, where a chest X-ray was performed; the patient was directed to the [facility] because she had increased RUQ pain. In the ER, the patient's pain was severe, rated a 10/10, and was given morphine and other medications before a CT scan. The CT scan revealed fractures of three ribs (including ribs 9-11) and a sacral fracture, with no liver injury. The patient could not tolerate ibuprofen in conjunction with her current regimen, also could not tolerate baclofen that was prescribed. Constipation: The patient has been constipated since being in the hospital. Trial of MiraLAX made the patient feel sick. The patient took Senna and subsequently had a bowel movement of hard, pebble-like stools, which was difficult to pass and was associated with some bleeding. The patient has not had any blood bowel movements since. History of Foot Fracture: The patient has a history of a right foot fracture, now in a foot brace. After the recent fall, the patient experienced immediate foot pain and was concerned about re-fracturing it. An X-ray in the hospital showed the fracture was still present but not displaced or worsened. Social History: - Functional Status: The patient reports difficulty with dressing due to pain and restricted movement. - Assistive Devices: The patient uses a shower chair due to a previous foot fracture and is considering using a wheelchair for safety when outdoors. Diagnostic Results: - CT Scan: Revealed fractures of three r ibs 9, 10, 11 and a sacral fracture, with no evidence of liver injury. [facility], LAT[facility] Medical History (Updated 07/30/25 @ 12:44 by Tana East MD) Sacral fracture Fall Ribs, multiple fractures Corneal ulcer Hyperlipidemia Osteoporosis Rheumatoid arthritis MGUS (monoclonal gammopathy of unknown significance) Anxiety Hypertension Subclinical hypothyroidism Surgical History (Updated 07/29/25 @ 23:13 by Tana East MD) H/O knee surgery History of tonsillectomy Family History (Updated 07/29/25 @ 23:13 by Tana East MD) Other Diabetes mellitus Heart valve disorder Mixed hyperlipidemia Primary hypertension Skin cancer Social History Housing: House Patient Tobacco Use Status: Never used Tobacco e-Cigarette/Vaping Use: Never Used Current occupational status: retired Questionnaire PHQ-9 Over the last 2 weeks, how often have you been bothered by any of the following problems? 1. Little interest or pleasure in doing things: several days 2. Feeling down, depressed, or hopeless: several days 3. Trouble falling or staying asleep, or sleeping too much: several days 4. Feeling tired or having little energy: several days 5. Poor appetite or overeating: several days 6. Feeling bad about yourself - or that you are a failure or have let yourself or your family down: several days 7. Trouble concentrating on things, such as reading the newspaper or watching television: not at all 8. Moving or speaking so slowly that other people could have noticed. Or the opposite - being so fidgety or restless that you have been moving around a lot more than usual: not at all 9. Thoughts that you would be better off or of hurting yourself in some way: not at all Total score: 6 Source: Developed by Drs. Connor Chua, Flavia Colon, Robert Pastor and colleagues, with an educational lonny from [employer]. AUDIT C Alcohol Use Questionnaire (AUDIT-C) 1. How often do you have a drink containing alcohol?: Never 3. How often do you have six or more drinks on one occasion?: Never Total Score: 0 Review of Systems Narrative Review of Systems - Respiratory: Reports dyspnea and sensation of losing breath, especially with movement, due to pain. - Musculoskeletal: Reports severe right-sided rib and back pain, rated as 10/10 initially and down to a 7/10 at its lowest, which is present with movement. - Gastrointestinal: Reports constipation with hard, pebble-like stools and rectal bleeding with a difficult bowel movement. - Integumentary: Denies any bruising on the back following the fall. Physical exam (Primary Care) Vital Signs: Last Vital Signs Temp 96.8 F 07/30/25 10:30 Pulse 60 07/30/25 10:30 Resp 16 07/30/25 10:30 BP 110/64 07/30/25 10:30 Pulse Ox 97 07/30/25 10:30 Oxygen Delivery Method Room Air 07/30/25 10:30 BMI result Body Mass Index 22.1 Tobacco/Smoking Status: Tobacco use Status Tobacco use date assessed 07/30/25 07/30/25 10:38 Patient Tobacco Use Status Never used Tobacco 07/30/25 10:38 e-Cigarette/Vaping Use Never Used 07/30/25 10:38 PHQ-9: PHQ-9 Score PHQ-9: Total score 6 07/30/25 12:33 Narrative Physical Exam - Chest/Back: Palpation over the right rib area elicits tenderness. - Respiratory: Patient exhibits respiratory splinting due to pain and is unable to take a deep breath on command. - Abd: SNTND, +BS - Integumentary: No contusion or ecchymosis noted on the back. Coding Level of Care Code Est Pt Level 4 (52089) Complex visit Add On G2211 Diagnoses Closed fracture of multiple ribs of right side, initial encounter S22.41XA Encounter type: initial encounter Fracture type: closed Laterality: right Fall, initial encounter W19.XXXA Encounter type: initial encounter Primary hypertension I10 Hypertension type: primary hypertension Closed fracture of sacrum, unspecified portion of sacrum, initial encounter S32.10XA Encounter type: initial encounter Fracture type: closed Zone of sacrum fracture: unspecified portion of sacrum Assessment & Plan Assessment & Plan (1) Ribs, multiple fractures: Code(s): S22.49XA - Multiple fractures of ribs, unspecified side, initial encounter for closed fracture Category: Medical Qualifiers: Encounter type: initial encounter Fracture type: closed Laterality: right Qualified Code(s): S22.41XA - Multiple fractures of ribs, right side, initial encounter for closed fracture (2) Fall: Code(s): W19.XXXA - Unspecified fall, initial encounter Category: Medical Qualifiers: Encounter type: initial encounter Qualified Code(s): W19.XXXA - Unspecified fall, initial encounter (3) Hypertension: Code(s): I10 - Essential (primary) hypertension Category: Medical Qualifiers: Hypertension type: primary hypertension Qualified Code(s): I10 - Essential (primary) hypertension (4) Sacral fracture: Code(s): S32.10XA - Unspecified fracture of sacrum, initial encounter for closed fracture Category: Medical Qualifiers: Encounter type: initial encounter Fracture type: closed Zone of sacrum fracture: unspecified portion of sacrum Qualified Code(s): S32.10XA - Unspecified fracture of sacrum, initial encounter for closed fracture Plan Assessment and Plan 1. Acute Rib and Sacral Fractures with Severe Pain - The patient is recovering from multiple traumatic fractures sustained in a fall, with significant, poorly controlled pain that is limiting respiratory effort. - The paramount goal is to improve pain control - Plan includes continuing Tylenol and initiating a scheduled regimen of oxycodone -can take 1/2 tab bid in addition to night time, patient is cautious about use of narcotics - The patient is encouraged to use the incentive spirometer. - A referral will be made to the pain center and orthopedics for specialized follow-up. - A prior authorization will be submitted for the 5% lidocaine patch, which provided relief in the hospital. 2. Opioid-Induced Constipation - The patient is experiencing hard stools and rectal bleeding likely due to opioid use. - Plan is to add a stool softener, docusate 100 mg (script sent), to be taken during the day, while continuing Senna at night. 3. Impaired Mobility and Fall Risk - Due to severe pain and previous foot injury, patient has difficulty with ADLs and is at risk when ambulating. - Plan is to send a prescription for a basic transport chair to a medical supply company to improve safety. Plan - Pain Management: Will send a new script for oxycodone, advised to be taken regularly (e.g., 1/2 tablet BID and 1 tablet at night) to control pain and allow for adequate respiratory function. - Pain Management: Will submit a prior authorization request for 5% lidocaine patches. - Pain Management: Continue Tylenol and discontinue Motrin. - Pulmonary: Encourage use of incentive spirometer 10 times an hour - Constipation: Will send a prescription for docusate (Colace) 100 mg; advised to take during the day and continue Senna at night. - Referrals: Will send a referral to the pain center/orthopedics for follow-up of rib and sacral fractures. - Durable Medical Equipment: Will send a prescription for a transport chair to [employer] for patient safety. - Follow-up: Patient to keep scheduled follow-up appointment in August. Will call for sooner appt if needed Discussion Notes I discussed the patient's recent fall and subsequent hospitalization for multiple rib fractures and sacral fracture. I explained that the priority is managing the severe pain to allow for full, deep breaths, which is critical for preventing complications like pneumonia. We reviewed the medication plan, agreeing to stop Motrin, continue Tylenol, and start a regular schedule of oxycodone to achieve better pain control. I informed the patient that I will send a new prescription for oxycodone and also attempt to get prior authorization for the 5% lidocaine patch, which was helpful in the hospital. We addressed the opioid-induced constipation, and I recommended continuing Senna at night while adding a prescription stool softener (docusate) during the day. I also advised on the importance of continued hydration and taking medications with food. I will send a referral to our pain center and orthopedics for fracture follow-up and a prescription for a transport wheelchair for safety. Patient Instructions - Take oxycodone for pain as prescribed to keep your pain under control so you can breathe deeply. - A good schedule might be half a pill in the morning, half in the afternoon, and a whole pill at night. - Continue taking Tylenol for extra pain relief. - Do not take Motrin or similar medications like ibuprofen. - To prevent and treat constipation from the pain medicine, continue taking Senna at night and start the prescribed docusate (Colace) stool softener during the day. - Use your breathing machine (incentive spirometer) 10 times every hour while you are awake - Take all of your medications with food. - For your safety, please use a wheelchair when you are out of the house. - We are sending a prescription for a transport chair to a [employer]. - We will refer you to a specialist for your broken ribs Medications: New docusate sodium 100 mg PO DAILY 60 caps 2RF CONSTIPATION oxycodone Partial Fill upon patient request. 5 mg PO BID PRN 14 tabs 0RF pain lidocaine 5% (Lidoderm) leave on most painful area for up to 12 hrs 1 patch topical DAILY 30 ea 4RF pain chair, wheel TRANSPORT CHAIR DX: W19.XXXA, FALL USE DAILY 1 ea 0RF
[2025-07-30 10:30] VITALS: BP 110/64; PULSE 60; RESP 16; TEMP 36; O2SAT 97; BMI 22.1
--- OUTSIDE RECORDS SUMMARY | 2025-07-30 11:54 | XMS_ITS | Clinical Summary ---
Author Organization [facility] [address] [facility] Address [address] [place] [address] Phone Care Team Providers Care Box Sealing Inspector Name Role Phone Tana East MD Primary Care Provider [phone] Allergies Active Allergy Reactions Criticality Noted Date [...] this topic Medical Devices Implanted Type Area Dry Cleaning Manager Device Identifier Shelf Expiration Date Model / Serial / Lot Lens Acrysof Sp Foldable 13.0 Optic 6.0 Sa60at.360 36.0d - [id number] Implanted:Qty: 1 on 11/28/2023 by Chandan Mishra MD at [facility] [address] Implant Left: Eye [employer] [id number] 06/16/2028 SA60AT.360 / [id number] / [id number] Lens Acrysof Sp Foldable 13.0 Optic 6.0 Sa60at.400 40.0d - [id number] Implanted:Qty: 1 on 12/12/2023 by Chandan Mishra MD at [facility] [address] Implant Right: Eye [employer] [id number] 12/31/2024 SA60AT.400 / [id number] / [id number] Insurance MEDICARE [place] [id number] AARP MEDICARE AARP Member Subscriber Plan / Payer ( fective 2022-) Name:Eliz Cobb Relation to Subscriber:Self Name:Eliz Cobb Payer ID:[id number] Group ID:[id number] Type:Not on file Address: [address] MEDICARE AARP Member Subscriber Plan / Payer (Ef fective 2022-Present) Name:Eliz Cobb Relation to Subscriber:Self Name:Eliz Cobb Payer ID:[id number] Group ID:[id number] [id number] Type:Not on file Address: [facility] [id number] [place] [id number] Care Teams Box Sealing Inspector Relationship Specialty Start Date End Date Tana East MD [facility] [address] [address] PCP - General Internal Medicine 07/26/23
--- OUTSIDE RECORDS SUMMARY | 2025-07-30 11:54 | XMS_ITS | Clinical Summary ---
Author Organization [facility] Address [address] [place] [phone] Phone Care Team Providers Care Spinneret Person Name Role Phone Tana East MD Primary Care Provider + Allergies Active Allergy Reactions Criticality Noted Date Comments Latex, Natural Rubber 06/03/2019 Medications pravastatin (PRAVACHOL) 20 MG tablet Take 20 mg by mouth nightly at bedtime. 1 04/02/2019 Active alendronate (FOSAMAX) 70 MG tablet TAKE ONE TABLET BY MOUTH ONCE A WEEK. TAKE ON AN EMPTY STOMACH, SIT UPRIGHT FOR 30 MINUTES AFTER 04/24/2021 Active sulfaSALAzine (AZULFIDINE) 500 mg tablet Take 1,000 mg by mouth 2 (two) times a day. 04/21/2021 Active Ca cit-D3-mag#11-z vgg-yjkv-fbt-lonny r (CALTRATE 600+D) 600 mg calcium- 800 unit-50 mg Tab Take 1 tablet by mouth daily. Active amLODIPine (NORVASC) 5 MG tablet Take 5 mg by mouth daily. Active baclofen (LIORESAL) 5 mg tablet Take 1 tablet (5 mg total) by mouth 3 (three) times a day for 14 days. 42 tablet 07/27/2025 08/10/20 25 Active lidocaine (LIDODERM) 5 % Place 1 patch onto the skin daily. Remove & Discard patch within 12 hours or as directed by 30 patch 07/27/2025 Active oxyCODONE 5 MG immediate release tablet Take 1 tablet (5 mg total) by mouth every 8 (eight) hours as needed for pain (specific location in comments). 9 tablet 07/27/2025 Active Active Problems Problem Noted Date Diagnosed Date Multiple closed fractures of ribs of right side 07/27/2025 Assessment & Plan (07/27/2025 9:30 PM EST): Buckle fractures of ribs 9 through 11 on the right side. Pain is a 6/10 and she has a weak cough. I demonstrated the proper way to do incentive spirometry at the bedside and she was able to get between 800 to 1000 cc. She is 75 years old. RIG score of 6 primarily driven by her age. She was tearful about staying in the hospital. I feel that her biologic age is significantly better than her chronologic age. She has multiple family members at the bedside. We had a shared decision about her treatment options including staying in the hospital for pain control, incentive spirometry and physical therapy evaluation although I did not feel the physical therapy evaluation be very fruitful. Alternatively, she could be given pain medications and continue to use incentive spirometer every 1-2 hours at home. She was very concerned about staying in [...] can use melatonin for sleep if necessary. Encounters Date Type Department Care Team Description 07/27/2025 2:16 PM EST - 07/27/2025 10:36 PM EST Emergency [facility] [address] [place] [address] Shona Urbina MD Discharge Disposition: Home or Self Care 07/27/2025 12:46 PM EST Hospital Encounter [facility] [address] [place] [address] Dora Lozada CNP Arrived 07/27/2025 12:46 PM EST Hospital Encounter [facility] [address] [place] [address] Dora Lozada CNP Arrived 07/27/2025 12:10 PM EST Office Visit [facility] at [address] [address] Dora Lozada CNP Rib pain (Primary Dx); Right foot pain 07/27/2025 Procedure Pass [address] [address] 07/27/2025 Procedure Pass [address] [address] from Last 3 Months Immunizations Immunization Administration Dates Next Due Influenza [...] Mass Index 27.12 07/27/2025 2:00 PM EST Plan of Treatment Health Maintenance Due Date Last Done Comments LIPID PANEL 1950 DEPRESSION SCREENING 1962 HEPATITIS C SCREENING 01/13/1968 COLOGUARD 1995 COLONOSCOPY 1995 COLORECTAL CANCER SCREENING 1995 FIT TEST 1995 FOBT 1995 SIGMOIDOSCOPY 1995 VIRTUAL COLONOSCOPY 1995 OSTEOPOROSIS SCREENING INITIAL (ONE-TIME) 2015 COVID-19 VACCINE ( season) 2025 05/29/2024, 05/29/2023, 06/26/2022, Additional history exists Adult Td,Tdap Booster 01/06/2031 01/06/2021, 018 SMOKING STATUS SCREENING (Once After 26 Yrs) Completed 05/21/2021 PNEUMOCOCCAL VACCINES (50+ years) Completed 03/14/2022, 07/07/2017, 10/05/2015 RSV VACCINE Completed 04/27/2024 ZOSTER VACCINES Completed 12/04/2024, 07/12/2024 INFLUENZA VACCINE Completed 06/05/2025, , 05/15/2023, Additional history exists HEPATITIS A VACCINES Aged Out No long [...] this topic Medical Devices Not on file Procedures Procedure Name Priority Date/Time Associated Diagnosis Comments CT ABDOMEN/PELVIS WITH CONTRAST Routine 07/27/2025 5:[address] CHEST WITH CONTRAST Routine 07/27/2025 5:34 PM EST ABO2F - 2ND TYPE (NEW SAMPLE) STAT 07/27/2025 5:12 PM EST TYPE AND SCREEN (ABO, RH, ANTIBODY SCREEN) STAT 07/27/2025 4:34 PM EST CBC AND DIFFERENTIAL STAT 07/27/2025 4:34 PM EST TYPE AND SCREEN (ABO,RH,ANTIBODY SCREEN) STAT 07/27/2025 4:34 PM EST PT-INR STAT 07/27/2025 4:34 PM EST MAGNESIUM STAT 07/27/2025 4:34 PM EST LFTS (HEPATIC PANEL) STAT 07/27/2025 4:34 PM EST BASIC METABOLIC PANEL (BMP) STAT 07/27/2025 4:34 PM EST CBC AND DIFFERENTIAL STAT 07/27/2025 4:34 PM EST XR RIBS 3 OR MORE VIEWS WITH PA CHEST (RIGHT) Urgent/patient waiting 07/27/2025 12:59 PM EST Rib pain XR FOOT 3 OR MORE VIEWS (RIGHT) Urgent/patient waiting 07/27/2025 12:58 PM EST Right foot pain from Last 3 Months Results * CT CHEST WITH CONTRAST (07/27/2025 5:34 PM EST) MGB IMG TWILL CUTTER COMMENT Incomplete buckle fractures of right ribs 9-11. No hemopneumothorax . Nondisplaced fracture of the inferior sacrum. [facility] Anatomical Region Laterality Modality Chest Computed Tomogra phy 07/27/2025 7:0 4 PM EST Impressions 07/27/2025 7:21 PM EST 1. Incomplete buckle fractures of right ribs 9-11. No hemopneumothorax. 2. Nondisplaced fracture of the inferior sacrum. A clinically significant result was initiated on 07/27/2025 7:20 PM, Message ID [id number]. Narrative 07/27/2025 7:[address] ABDOMEN/PELVIS [...] provided indication for this examination in Epic: *Abdominal pain, acute, nonlocalized; Fall into bathtub [...] was initiated on 07/27/2025 7:20 PM,Message ID [id number]. us Shona Urbina MD IM CT CHEST Final Result * CT ABDOMEN/PELVIS WITH CONTRAST (07/27/2025 5:34 PM EST) MGB IMG TWILL CUTTER COMMENT Incomplete buckle fractures of right ribs [...] initiated on 07/27/2025 7:20 PM, Message ID [id number]. Narrative 07/27/2025 7:[address] ABDOMEN/PELVIS [...] provided indication for this examination in Epic: *Abdominal pain, acute, nonlocalized; Fall into bathtub [...] was initiated on 07/27/2025 7:20 PM,Message ID [id number]. Shona Urbina MD IMG CT ABD/PELVIS Final Resu lt * 2nd Type (New Sample) (07/27/2025 5:12 PM EST) ABO/RH B Positive 07/27/2025 5:55 PM EST [facility] Blood (Blood) Venipuncture / Unknown 07/27/2025 5:12 PM EST 07/27/2025 5:17 PM EST Shona Urbina MD LAB BLOOD BANK TEST ORDERABL ES Final Result Performing Organization Address City/[facility]/ZIP Co de Phone Number [facility], [address] [place] [phone] [address] * Type and Screen (ABO, Rh, Antibody Screen) (07/27/2025 4:34 PM EST) ABO/RH B Positive 07/27/2025 5:21 PM EST [facility] Antibody Screen Negative 07/27/2025 5:21 PM EST [facility] Sample Expires 07/30/2025,2 359 07/27/2025 5:21 PM EST [facility] Blood (Blood) Venipuncture / Unknown 07/27/2025 4:34 PM EST 07/27/2025 4:37 PM EST us Shona Urbina MD LAB BLOOD BANK TEST ORDERABL ES Final Result Performing Organization Address City/[facility]/ZIP Co de Phone Number [facility], [address] [place] [address] [address] * (ABNORMAL) CBC and Differential (07/27/2025 4:34 PM EST) WBC 10.21 4.00 - 11.00 K/uL 07/27/2025 4:40 PM [facility] RBC 3.77(L) 4.00 - 5.20 M/uL 07/27/2025 4:40 PM [facility] Hemoglobin 12.0 12.0 - 16.0 g/dL 07/27/2025 4:40 PM [facility] Hematocrit 37.8 36.0 - 46.0 % 07/27/2025 4:40 PM [facility] MCV 100.3(H) 80.0 - 100.0 fL 07/27/2025 4:40 PM [facility] MCH 31.8(H) 27.0 - 31.0 pg 07/27/2025 4:40 PM [facility] MCHC 31.7(L) 32.0 - 36.0 g/dL 07/27/2025 4:40 PM [facility] MPV 9.9 8.4 - 12.0 fL 07/27/2025 4:40 PM [facility] RDW-CV 12.4 11.5 - 14.5 % 07/27/2025 4:40 PM [facility] PLT 339 150 - 450 K/uL 07/27/2025 4:40 PM [facility] Neutrophils 79.6 % 07/27/2025 4:40 PM [facility] Lymphocytes 13.0 % 07/27/2025 4:40 PM [facility] Monocytes 6.7 % 07/27/2025 4:40 PM [facility] Eosinophils 0.0 % 07/27/2025 4:40 PM [facility] Basophils 0.3 % 07/27/2025 4:40 PM [facility] Imm Grans 0.4 % 07/27/2025 4:40 PM [facility] NRBC 0.0 <=0.0 /100 WBCs 07/27/2025 4:40 PM [facility] Absolute Neutrophils 8.13(H) 1.92 - 7.60 K/uL 07/27/2025 4:40 PM [facility] Absolute Lymphocytes 1.33 0.72 - 4.10 K/uL 07/27/2025 4:40 PM [facility] Absolute Monocytes 0.68 0.16 - 1.10 K/uL 07/27/2025 4:40 PM [facility] Absolute Eosinophils 0.00 0.00 - 0.50 K/uL 07/27/2025 4:40 PM [facility] Absolute Basophils 0.03 0.00 - 0.15 K/uL 07/27/2025 4:40 PM [facility] Absolute Imm Grans 0.04 0.00 - 0.09 K/uL 07/27/2025 4:40 PM [facility] Absolute NRBC 0.00 <=0.00 K cells/uL 07/27/2025 4:40 PM [facility] Absolute Neutrophils 8.13(H) 1.92 - 7.60 K/uL 07/27/2025 4:40 PM [facility] Comment:Automated cell count . Manual ANC may differ if performed. Diff Type Auto 07/27/2025 4:40 PM [facility] Blood (Blood) Venipuncture / Unknown 07/27/2025 4:34 PM EST 07/27/2025 4:37 PM EST us Shona Urbina MD LAB BLOOD BKR ORDERABLES Fin al Result [address] [address] * Hepatic Panel (LFTs) (07/27/2025 4:34 PM EST) AST 24 <33 U/L 07/27/2025 5:06 PM [facility] ALT 15 <34 U/L 07/27/2025 5:06 PM [facility] Alkaline Phosphatase 59 40 - 130 U/L 07/27/2025 5:06 PM [facility] Bilirubin, Total 0.4 0.0 - 1.2 mg/dL 07/27/2025 5:06 PM [facility] Bilirubin, Direct 0.1 0.0 - 0.3 mg/dL 07/27/2025 5:06 PM [facility] Total Protein 8.1 6.4 - 8.3 g/dL 07/27/2025 5:06 PM [facility] Albumin 4.4 3.5 - 5.2 g/dL 07/27/2025 5:06 PM [facility] Globulin 3.7 1.9 - 4.1 g/dL 07/27/2025 5:06 PM [facility] Blood (Blood) Venipuncture / Unknown 07/27/2025 4:34 PM EST 07/27/2025 4:37 PM EST Shona Urbina MD LAB BLOOD BKR ORDERABLES Fin al Result Performing Organization Address City/[facility]/ZIP Co de Phone Number [address] [address] * PT-INR (07/27/2025 4:34 PM EST) PT 12.8 10.0 - 13.0 sec 07/27/2025 5:10 PM [facility] INR 1.0 0.9 - 1.1 07/27/2025 5:10 PM [facility] Comment:Therapeutic Range 2. 0 - 3.5 Blood (Blood) Venipuncture / Unknown 07/27/2025 4:34 PM EST 07/27/2025 4:37 PM EST Shona Urbina MD LAB BLOOD BKR ORDERABLES Fin al Result [address] [address] * Magnesium (07/27/2025 4:34 PM EST) Magnesium 2.1 1.7 - 2.6 mg/dL 07/27/2025 5:06 PM [facility] Blood (Blood) Venipuncture / Unknown 07/27/2025 4:34 PM EST 07/27/2025 4:37 PM EST us Shona Urbina MD LAB BLOOD BKR ORDERABLES Fin al Result [address] [address] * Basic Metabolic Panel (BMP) (07/27/2025 4:34 PM EST) [facility] Sodium 137 136 - 145 mmol/L 07/27/2025 5:06 PM [facility] Potassium 4.2 3.4 - 5.1 mmol/L 07/27/2025 5:06 PM [facility] Chloride 101 98 - 107 mmol/L 07/27/2025 5:06 PM [facility] CO2 25 20 - 31 mmol/L 07/27/2025 5:06 PM [facility] Anion Gap 11 3 - 17 mmol/L 07/27/2025 5:06 PM [facility] BUN 12 6 - 23 mg/dL 07/27/2025 5:06 PM [facility] Creatinine 0.60 0.50 - 1.00 mg/dL 07/27/2025 5:06 PM [facility] eGFR 94 >59 mL/min/1.7 3m2 07/27/2025 5:06 PM [facility] Comment:Estimated glomerular filtration rate calculated using the CKD-EPI refit equation. Glucose 95 70 - 99 mg/dL 07/27/2025 5:06 PM [facility] Calcium 9.4 8.5 - 10.5 mg/dL 07/27/2025 5:06 PM [facility] Blood (Blood) Venipuncture / Unknown 07/27/2025 4:34 PM EST 07/27/2025 4:37 PM EST us Shona Urbina MD LAB BLOOD BKR ORDERABLES Fin al Result [address] [address] * XR RIBS 3 OR MORE VIEWS [...] clinician's provided indication for this examination in [facility]: Pain; Trauma; S/P Fall; hx recent fracture COMPARISON: None. Procedure Note Yves Hercules MD - 07/27/2025 XR RIBS 3 OR MORE VIEWS WITH PA CHEST (RIGHT) Referring clinician's provided indication for this examination in [facility]:Pain; Trauma; S/P Fall; hx recent fracture COMPARISON: None. IMPRESSION: No acute displaced right rib fracture. No focal consolidation, pleural effusion, pulmonary edema or pneumothorax.Normal cardiomediastinal silhouette. Atherosclerotic calcification of theaorta. Mild multilevel degenerative changes of the thoracic spine. Dora Lozada [facility] IM XR CHEST Final R esult * XR [...] for this examination in Epic: Pain; Trauma; hx recent fracture COMPARISON: None. [...] dorsal and plantar calcaneal enthesophytes. Dora Lozada [employer] IMG XR LOWER EXTREMITY Final Result from Last 3 Months Insurance MEDICARE PART A & B [facility] MEDICARE SUPPLEMENT MEDICARE PART A & B MEDICARE PART A & B MEDICARE PART A & B MEDICARE PART A & B MEDICARE PART A & B MEDICARE PART A & B [facility] MEDICARE SUPPLEMENT Care Teams Spinneret Person Relationship Specialty Start Date End Date Tana East MD [address] [place] [address] PCP - General Internal Medicine 07/27/25 Additional Source Comments The information contained in this document represents components of the legal health record. It is not the complete legal health record.[facility]
--- OUTSIDE RECORDS SUMMARY | 2025-07-30 11:54 | XMS_ITS | Encounter Summary ---
Author Organization [facility] Address [address] [place] [address] Phone Care Team Providers Care Children Counselor Name Role Phone Tana East MD Primary Care Provider + Encounter Details Date Type Department Care Team (Late st Contact Info) Description 07/27/2025 Procedure Pass [facility], Ct Scan - [facility] [address] [place] [address] Social History Tobacco Use Types Packs/Day Years [...] 07/27/2025 2:01 PM Yudy Angel RN * [place] Suicide Severity Rating Scale (Screener/Recent Self-Report) Question [...] on filedocumented in this encounter Care Teams Children Counselor Relationship Specialty Start Date End Date Tana East MD [address] [place] [address] PCP - General Internal Medicine 07/27/25 documented as of this encounter Additional Source Comments The information contained in this document represents components of the legal health record. It is not the complete legal health record.[facility]
--- OUTSIDE RECORDS SUMMARY | 2025-07-30 11:54 | XMS_ITS | Encounter Summary ---
Author Organization [facility] Address [address] [facility] [address] [place] [address] Phone Care Team Providers Care Ferry Terminal Agent Name Role Phone Tana East MD Primary Care Provider + Adrian Waterman MD Primary Care Provider + Eveline Hilario OD Unavailable [phone] Tana East MD Primary Care Provider + Reason for Referral * Physical Therapy (Routine) - Closed Specialty Diagnoses / Procedures Referred By Thalia guillaume Referred To Contact Physical Therapy Diagnoses Encounter for rehabilitation System, Provider Not In, [facility] [id number] [place] [address] Phone: tel: Referral ID Status Reason Start Date Expiration Date Visits Re quested Visits Authorized [id number] Closed 12/19/2018 08/27/2019 99 [phone] Encounter Details Date Type Department Care Team (Latest Contact Info) Description 12/18/2018 Transcribe Orders [facility] [address] [place] [address] Tana East MD [address] [place] [phone] Encounter for rehabilitation (Primary Dx) Social History [...] Date/Time Associated Diagnosis Comments AMB REFERRAL TO [facility] PHYSICAL THERAPY Routine 12/20/2018 8:47 AM EDT Encounter for rehabilitation documented in this encounter Results * Ambulatory referral to [facility] Physical Therapy (12/20/2018 8:47 AM EDT) us Provider Not In System PhD AMB [facility] REFERRALS Fin al Result documented in this encounter Visit Diagnoses Diagnosis Encounter for rehabilitation- Primary documented in this encounter Care Teams Ferry Terminal Agent Relationship Specialty Start Date End Date Tana East MD PCP - General Internal Medicine 12/14/18 12/04/22 Adrian Waterman MD [facility] [address] [address] PCP - General Ophthalmology 12/05/22 07/26/25 Tana East MD [address] [place] [address] PCP - General Internal Medicine 07/27/25 Eveline Hilario OD [address] [facility] [place] [address] [place] [address] Optometry 12/05/22 12/05/22 documented as of this encounter Additional Source Comments The information contained in this document represents components of the legal health record. It is not the complete legal health record.[facility]
--- OUTSIDE RECORDS SUMMARY | 2025-07-30 11:54 | XMS_ITS | Encounter Summary ---
Author Organization [facility] Address [address] [place] [address] Phone Care Team Providers Care Insulation Foreman Name Role Phone Tana East MD Primary Care Provider + Encounter Details Date Type Department Care Team (Late st Contact Info) Description 07/27/2025 Procedure Pass [facility], Ct Scan - [facility] [address] [place] [address] Social History Tobacco Use Types Packs/Day Years [...] 07/27/2025 2:01 PM Yudy Angel RN * [place] Suicide Severity Rating Scale (Screener/Recent Self-Report) Question [...] on filedocumented in this encounter Care Teams Insulation Foreman Relationship Specialty Start Date End Date Tana East MD [address] [place] [address] PCP - General Internal Medicine 07/27/25 documented as of this encounter Additional Source Comments The information contained in this document represents components of the legal health record. It is not the complete legal health record.[facility]
--- OUTSIDE RECORDS SUMMARY | 2025-07-30 11:54 | XMS_ITS | Encounter Summary ---
Author Organization [facility] Address [facility] [address] [address] Phone Care Team Providers Care Hand Tapper Name Role Phone Tana East MD Primary Care Provider + Adrian Waterman MD Primary Care Provider + Eveline Hilario OD Unavailable [phone] Tana East MD Primary Care Provider + Encounter Details Date Type Department Care Team (Late st Contact Info) Description 02/04/2019 Documentation [facility] [address] [place] [phone] Elizabeth Lujan PT [email or web address] Social History Tobacco Use Types Packs/Day Years [...] on filedocumented in this encounter Care Teams Hand Tapper Relationship Specialty Start Date End Date Tana East MD PCP - General Internal Medicine 12/14/18 12/04/22 Adrian Waterman MD [facility] [address] [address] PCP - General Ophthalmology 12/05/22 07/26/25 Tana East MD [address] [place] [address] PCP - General Internal Medicine 07/27/25 Eveline Hilario OD [address] [facility] [address] [place] [address] Optometry 12/05/22 12/05/22 documented as of this encounter Additional Source Comments The information contained in this document represents components of the legal health record. It is not the complete legal health record.[facility]
== END 2025-07-30 11:25 | disposition home or self-care (01) ==
LOC: HO.HMCHD 10:23
PROVIDERS: PCP Internal Medicine; Visit Provider Internal Medicine
DX: S22.41XA Multiple fractures of ribs, right side, initial encounter for closed fracture (principal); W19.XXXA Unspecified fall, initial encounter; I10 Essential (primary) hypertension; S32.10XA Unspecified fracture of sacrum, initial encounter for closed fracture

== ENCOUNTER → 2025-07-30 10:23 | Outpatient (BNVA) | payer MEDICARE, SELFPAY | PROVIDERS: PCP Internal Medicine; Visit Provider Internal Medicine | DX: S22.41XD Multiple fractures of ribs, right side, subsequent encounter for fracture with routine healing (principal); S32.10XD Unspecified fracture of sacrum, subsequent encounter for fracture with routine healing; W19.XXXD Unspecified fall, subsequent encounter; Z87.81 Personal history of (healed) traumatic fracture; I10 Essential (primary) hypertension; M79.671 Pain in right foot; Z79.891 Long term (current) use of opiate analgesic; Z13.30 Encounter for screening examination for mental health and behavioral disorders, unspecified | CPT/HCPCS: 96127; 99212 ==

== ENCOUNTER 2025-08-11 12:02 | Outpatient (AMB) | payer MEDICARE, SELFPAY ==
--- NOTE | 2025-08-11 12:05 | MHC.OFFVIS ---
Vital Signs 08/11/25 12:06 Height 5 ft 5.5 in Weight 137 lb BMI 22.4 BP 136/60 Blood Pressure Location Lt brachial Position Sitting Respiration 16 Pulse 83 Pulse Source Pulse Oximeter Pulse Oximetry (%) 97 Oxygen Delivery Method Room Air Intake Visit Reasons: intercostal NB Key Punch Teacher Required: No Branch Service Associate: Branch Service Associate Present Accompanied by: Herbie Li Allergies latex Allergy (Intermediate, Verified 09/15/25 09:16) Rash Medication List - Last Reconciled 08/11/25 by Olga Arana LPN acetaminophen (Tylenol) 650 mg PO Q6H PRN alendronate 70 mg PO QWEEK amlodipine 5 mg PO DAILY chair, wheel TRANSPORT CHAIR DX: W19.XXXA, FALL USE DAILY docusate sodium 100 mg PO DAILY multivitamin with folic acid 400 mcg (Daily-Victor Manuel (with folic acid)) 1 tab PO DAILY pravastatin 20 mg PO DAILY sennosides (senna) 17.2 mg PO DAILY sulfasalazine 1.5 grams PO BID HPI HPI intercostal NB: Details: History of Present Illness The patient is a 75-year-old female presenting with right-sided thoracic chest wall pain following an injury that resulted in rib fractures. An X-ray revealed fractures of the 9th, 10th, and 11th ribs. She was seen by her primary care provider for complaints of excruciating pain and pain with breathing. The patient denied any use of anticoagulants prior to the procedure. Pain Description - Onset: Following an injury. - Location: Right-sided thoracic chest wall. - Quality: Excruciating. - Exacerbating factors: Breathing. Results - X-ray: Showed rib fractures at T9, T10, and T11. Procedure - Procedure: Ultrasound-guided intercostal nerve blocks at right T9, T10, and T11. - Consent: Informed consent was obtained. - Description: The patient was placed in a prone position, and the right thoracic area was prepped with chloraprep. - Under ultrasound guidance, 3 mL of ropivacaine 0.5% with 5 mg of Kenalog was injected at each of the right 9th, 10th, and 11th intercostal sites. - Outcome: The patient tolerated the procedure well but complained of postprocedural chest discomfort and difficulty breathing. - She was observed for 10 to 15 minutes post-procedure without any decline in her condition and was discharged in stable condition. [facility] Medical History (Updated 07/30/25 @ 12:44 by Tana East MD) Sacral fracture Fall Ribs, multiple fractures Corneal ulcer Hyperlipidemia Osteoporosis Rheumatoid arthritis MGUS (monoclonal gammopathy of unknown significance) Anxiety Hypertension Subclinical hypothyroidism Surgical History (Updated 07/29/25 @ 23:13 by Tana East MD) H/O knee surgery History of tonsillectomy Family History (Updated 07/29/25 @ 23:13 by Tana East MD) Other Diabetes mellitus Heart valve disorder Mixed hyperlipidemia Primary hypertension Skin cancer Social History Housing: House Patient Tobacco Use Status: Never used Tobacco e-Cigarette/Vaping Use: Never Used Current occupational status: retired Cognitive needs: No Hearing needs: No Vision needs: No Physical Exam Vital Signs: Last Vital Signs Pulse 83 08/11/25 12:06 Resp 16 08/11/25 12:06 BP 136/60 08/11/25 12:06 Pulse Ox 97 08/11/25 12:06 Oxygen Delivery Method Room Air 08/11/25 12:06 BMI result Body Mass Index 22.4 Assessment & Plan Assessment & Plan (1) Ribs, multiple fractures: Code(s): S22.49XA - Multiple fractures of ribs, unspecified side, initial encounter for closed fracture Category: Medical Qualifiers: Encounter type: initial encounter Fracture type: closed Laterality: right Qualified Code(s): S22.41XA - Multiple fractures of ribs, right side, initial encounter for closed fracture Plan Plan Patient was informed and verbally consented to the use of an ambient scribe for clinic note documentation during this visit. 1. Right-Sided Thoracic Chest Wall Pain - An intercostal nerve block was performed at T9, T10, and T11 on the right side under ultrasound guidance to manage the patient's pain from rib fractures. - The patient was observed for 10-15 minutes after the procedure due to complaints of chest discomfort and difficulty breathing, but her condition was stable. - Follow-up is advised in one week to assess the response to the injection. - Repeat injections will be considered as needed based on the outcome of today's procedure. Discussion Notes I obtained informed consent from the patient before performing the ultrasound-guided intercostal nerve blocks at the right T9, T10, and T11 levels. The patient tolerated the procedure well but reported some chest discomfort and difficulty breathing afterward. She was monitored for 10 to 15 minutes, during which her condition remained stable with no decline. I advised her to follow up in one week to assess her response to the injection and discuss the need for repeat injections. She was discharged home in stable condition. Patient Instructions - Please follow up in our clinic in one week so we can see how you are doing after the injection. - We will decide if you need more injections at your follow-up visit. Coding Level of Care Code New Pt Level 3 (23141) Diagnoses Closed fracture of multiple ribs of right side, initial encounter S22.41XA Encounter type: initial encounter Fracture type: closed Laterality: right
[2025-08-11 12:06] VITALS: BP 136/60; PULSE 83; RESP 16; O2SAT 97; BMI 22.4
== END 2025-08-11 13:35 | disposition home or self-care (01) ==
LOC: HO.PMC 12:02
PROVIDERS: PCP Internal Medicine; Visit Provider Internal Medicine
DX: S22.41XA Multiple fractures of ribs, right side, initial encounter for closed fracture (principal)
CPT/HCPCS: 64420; 64421; 76942; 99203

== ENCOUNTER → 2025-08-11 12:02 | Outpatient (BNVA) | payer MEDICARE, SELFPAY | PROVIDERS: PCP Internal Medicine; Visit Provider Internal Medicine | DX: R07.89 Other chest pain (principal); S22.41XA Multiple fractures of ribs, right side, initial encounter for closed fracture; W18.30XA Fall on same level, unspecified, initial encounter; Y93.9 Activity, unspecified; Y92.9 Unspecified place or not applicable; Y99.8 Other external cause status | CPT/HCPCS: 64420; 64421; 99202 ==